=== PATIENT | female | born 1950 | race Caucasian/White ===

== ENCOUNTER → 2020-05-07 12:09 | Outpatient (CLI) | payer MEDICARE, SELFPAY ==
--- NOTE | ~2020-05-07 | DEXA_ITS ---
Bone Density Report Name: Teena Tinoco Age: 69 Sex: Female Ethnicity: White Date of : 1950 Indication: postmenopausal; screening for osteoporosis; parental hip fracture; height loss; prior fracture; hysterectomy; Referring Provider: KADE, TAMMY Watt Study: Bone densitometry was performed. Exam Date: May 07, 2020 Accession number: [id number] Bone Density: Region BMD T-score Z-score Classification AP Spine (L1-L4) 0.740 -2.8 -0.7 Osteoporosis Femoral Neck (Left) 0.327 -4.7 -2.9 Osteoporosis Total Hip (Left) 0.460 -4.0 -2.4 Osteoporosis Femoral Neck (Right) 0.376 -4.3 -2.4 Osteoporosis Total Hip (Right) 0.460 -3.9 -2.4 Osteoporosis Total Hip Mean 0.460 -4.0 -2.4 Osteoporosis World Health Organization criteria for BMD impression classify patients as: Normal (T-score at or above -1.0), Osteopenia (T-score between -1.0 and -2.5), or Osteoporosis (T-score at or below -2.5). 10-year Fracture Risk: FRAX not reported because: Some T-score for Spine Total or Hip Total or Femoral Neck at or below -2.5 Prior hip or vertebral fracture Clinical Information Provided by Patient: Have had a previous hip or vertebral fracture Has had a low trauma fracture Parent has had a hip fracture Has the following medical conditions: Hysterectomy Patient maximum height was 61.0 Menopause Age: 30 No regular weight bearing exercise Does not regularly consume dairy products Drinks caffeinated beverages Onset of menses at age 13 Number of children 1 Impression: The patient has established osteoporosis, based on the Left Femoral Neck T-score and the existence of a prior fracture. The patient has risk factors, including: parental hip fracture, previous fracture. Discussion: HIGH RISK OF FRACTURE. BONE DENSITY IS UNDESIRABLY LOW AT ONE OR MORE SKELETAL SITES, CONSISTENT WITH POSTMENOPAUSAL OSTEOPOROSIS. This patient's lowest T-score, in a patient who has previously fractured, meets the World Health Organization's (WHO) criteria for severe osteoporosis. In untreated patients, the risk of osteoporotic fracture increases approximately two-fold for each 1.0 SD decrease in T-score. Low bone density is not the only risk factor for fracture; also consider factors such as patient's age, frailty or poor health, risk of falling, risk of injury, previous osteoporotic fracture, family history of osteoporosis, cigarette smoking, low body weight, etc. Not everyone with low bone mineral density has osteoporosis; osteomalacia and other metabolic bone disorders should also be considered. Patients who have osteoporosis should be evaluated for specific diseases and conditions (secondary causes) that may cause or contribute to bone loss. The [place] [employer]ocrinologists (AACE) and National Osteoporosis Foundation (NOF) recommend
--- NOTE | ~2020-05-07 | MM_ITS ---
EXAMINATION: MM screening jenny BI w karishma HISTORY: Screening mammogram TECHNIQUE: Craniocaudal and mediolateral oblique 3-D tomosynthesis images were obtained and synthetic 2-D images were generated. CAD analysis was submitted and interpreted. COMPARISON: 03/20/2018 bilateral diagnostic digital mammogram 11/17/2014 bilateral digital screening mammogram BREAST PARENCHYMAL COMPOSITION: The breasts are heterogeneously dense, which may obscure small masses . FINDINGS: There are numerous scattered bilateral benign calcifications. There is no evidence of suspi cious mass, calcification, or architectural distortion to suggest malignancy in either breast. There has been no suspicious interval change. IMPRESSION: 1. No mammographic evidence of malignancy. 2. Recommend routine screening mammography in one year. BI-RADS Category 2: Benign Reviewed, dictated and finalized at location A. IVER/LABORER
== END ==
PROVIDERS: Visit Provider Internal Medicine
DX: Z12.31 Encounter for screening mammogram for malignant neoplasm of breast (principal); Z78.0 Asymptomatic menopausal state; M81.0 Age-related osteoporosis without current pathological fracture
CPT/HCPCS: 77063; 77067; 77080

== ENCOUNTER 2020-05-25 12:24 | Inpatient (IN) | payer MEDICARE, SELFPAY ==
[2020-05-25] VITALS (7 sets, daily range): BP systolic 103–138; BP diastolic 66–79; PULSE 72–92; RESP 16–18; TEMP 36.5–36.7; O2SAT 96–100; BMI 28.2
--- NOTE | ~2020-05-25 | XR_ITS ---
EXAMINATION: XR shoulder RT min 2V DATE: 05/25/2020 15:20 INDICATION: Right shoulder pain. Fall. TECHNIQUE: 2 views of right shoulder were obtained. COMPARISON: None. FINDINGS: There is a comminuted fracture of proximal humerus with involvement of the surgical neck an d greater tuberosity. The lesser tuberosity is not well evaluated. The main distal fracture fragment demonstrates impaction, 2.1 cm anterior displacement, 31 degrees posterior angulation, 5 mm medial di splacement, and 20 degrees lateral angulation. There is mild glenohumeral joint osteoarthritis and mi ld acromioclavicular joint osteoarthritis. IMPRESSION: 1. Comminuted two-part fracture of proximal right humerus. Reviewed, dictated and finalized at location A.
--- NOTE | ~2020-05-25 | CT_ITS ---
EXAMINATION: CT shoulder RT wo con DATE: 05/25/2020 18:39 INDICATION: Right shoulder injury. TECHNIQUE: Computed tomography (CT) of the right shoulder was performed without intravenous contrast. Automated exposure control and iterative reconstruction technique were employed. The dose-length pro duct was 415.39 mGy-cm. COMPARISON: Right shoulder radiographs 05/25/2020 FINDINGS: There is a comminuted fracture of proximal right humerus including displaced fracture compo nents at the greater and lesser tuberosities and surgical neck. The main distal fracture fragment dem onstrates impaction, 16 mm anterior displacement, and 24 degrees posterior angulation. There is mild osteoarthritis of glenohumeral and acromio clavicular joints. IMPRESSION: 1. Comminuted, four-part fracture of proximal right humerus. Reviewed, dictated and finalized at location A.
--- NOTE | ~2020-05-25 | XR_ITS ---
EXAMINATION: XR forearm RT 2V DATE: 05/25/2020 15:20 INDICATION: Right forearm pain. TECHNIQUE: 2 views of right forearm were obtained. COMPARISON: None. FINDINGS: Bone alignment is normal. No fracture. There is mild elbow joint osteoarthritis. There is m ild osteoarthritis of first and third metacarpophalangeal joints. IMPRESSION: 1. No fracture. Reviewed, dictated and finalized at location A. IMPRESSION: 1. No fracture.
--- NOTE | ~2020-05-25 | XR_ITS ---
EXAMINATION: XR humerus RT DATE: 05/25/2020 15:20 INDICATION: Right shoulder pain. Fall. TECHNIQUE: 2 views of right humerus were obtained. COMPARISON: None. FINDINGS: There is a comminuted fracture of proximal right humerus with nondisplaced fracture compone nt at the greater tuberosity. There is a fracture component at the surgical neck where the distal fra cture fragment demonstrates impaction, medial displacement, lateral angulation, anterior displacement , and posterior angulation. There is mild osteoarthritis of glenohumeral and acromioclavicular joints . There are old healed right rib fractures. IMPRESSION: 1. Comminuted two-part fracture of proximal right humerus. Reviewed, dictated and finalized at location A.
--- NOTE | 2020-05-25 14:45 | PC.NURSE ---
provider at bedside. Family updated on pt room.
[2020-05-25] MEDS: HYDROcodone/acetaminophen (*CRX) 5-325 MG TABLET 1 TAB PO (16:02)
--- NOTE | 2020-05-25 16:20 | ED.GENADULT ---
HPI - General Adult General Chief complaint: Extremity Injury, Upper Stated complaint: right arm pain Time Seen by Provider: 05/25/20 14:53 Source: patient Mode of arrival: EMS Limitations: no limitations History of Present Illness HPI narrative: Patient presents to the emergency department for evaluation of right arm pain due to losing her footing while ambulating with her walker. Patient is coming from [facility]. Patient states that she has broken the shoulder in the past but she is not sure who the surgeon was to perform the surgery or exactly when it was. Patient denies any head impact or loss of consciousness. She denies any headache, chest pain, shortness of breath or any other areas of pain or discomfort. Related Data Home Medications Medication Instructions Recorded Confirmed bupropion HCl mg PO 05/25/20 donepezil mg 05/25/20 escitalopram oxalate mg 05/25/20 exenatide microspheres [Bydureon mg SUBCUT 05/25/20 BCise] furosemide 05/25/20 gabapentin 05/25/20 glimepiride mg 05/25/20 levothyroxine 05/25/20 metformin mg PO 05/25/20 nadolol 05/25/20 potassium chloride [Klor-Con M20] meq PO 05/25/20 Allergies Allergy/AdvReac Type Severity Reaction Status Date / Time azithromycin Allergy Unknown Unknown Verified 05/25/20 20:54 lisinopril Allergy Unknown Unknown Verified 05/25/20 20:54 niacin Allergy Unknown Unknown Verified 05/25/20 20:54 Review of Systems Review of Systems: Narrative: CONSTITUTIONAL: Denies fever, chills, or sweats. EYES: Denies visual changes, redness, or discharge. ENT: Denies rhinorrhea, congestion, sore throat, or otalgia. CARDIOVASCULAR: Denies chest pain, palpitations, or edema. RESPIRATORY: Denies cough or dyspnea. GASTROINTESTINAL: Denies abdominal pain, nausea, vomiting, or diarrhea. GENITOURINARY: Denies dysuria or hematuria. SKIN: Denies rash or itching. MUSCULOSKELETAL: Reports right shoulder pain denies back pain, joint pain, or myalgia. NEUROLOGIC: Denies headache, numbness, dizziness, or weakness. PSYCHIATRIC: Denies anxiety or depression. [facility] Family History Family History (Updated 05/25/20 @ 20:53 by Concha Kenyon RN) Mother Acute myocardial infarction Diabetes mellitus Hypertension Social History Social History Smoking packs per day: 1 Smoking cigarettes per day: 20.0 Years smoked: 20 Smoking pack-years: 20.00 Smoking status: Former smoker Tobacco type: cigarettes Second hand tobacco smoke exposure: Yes Alcohol intake: never Substance use: never Gender identity (if verbalized by the patient): Female Spiritual care concerns: No Exam Narrative: Exam Narrative: GENERAL: Well-appearing, well-nourished, and in no acute distress. HEAD: Normocephalic, atraumatic. No hematomas or lacerations. EYES: PERRLA and EOMI. ENT: Nares clear, no rhinorrhea or epistaxis. Mucous membranes moist. Oropharynx without tonsillar hypertrophy exudate or other lesions. Bilateral TMs pearly oscar nonbulging. No hemotympanum. NECK: Supple. No adenopathy or masses. No pain with range of motion. CHEST: Clear to auscultation. No respiratory distress. No wheezes rales or rhonchi HEART: Regular rate and rhythm. EXTREMITIES: Pain with palpation of the proximal humerus. Patient reports pain to his elbow and forearm as well that is more mild. SKIN: Warm, dry, no rash. NEURO: No focal deficits. Alert and oriented to person, place and situation. PSYCH: Normal mood and affect. Course Vital Signs Vital signs: Vital Signs Temperature 98.0 F 05/25/20 14:19 Pulse Rate 76 05/25/20 14:19 Respiratory Rate 16 05/25/20 14:19 Blood Pressure 103/66 05/25/20 14:19 Pulse Oximetry 97 05/25/20 14:19 Temperature 98.0 F 05/25/20 14:19 Pulse Rate 80 05/25/20 20:21 Respiratory Rate 18 05/25/20 20:21 Blood Pressure 121/78 05/25/20 20:21 Pulse Oximetry 97 05/25/20 20:21 Medical Decision Making KOBE Ellis
--- NOTE | 2020-05-25 16:23 | PC.NURSE ---
Swathi updated on pt status, state they will attempt to fax pt medication list.
--- NOTE | 2020-05-25 18:00 | PC.NURSE ---
Pt and family have decided that they would like to to stay in hospital at this time. Family states she cannot come home with them and pt states she does not feel safe to return to the facility where she is living.
--- NOTE | 2020-05-25 19:09 | PC.NURSE ---
Report to VENKAT Bartholomew and Martin, they have assumed pt care at this time.
--- NOTE | 2020-05-25 20:35 | ADMGEN ---
This patient, Teena Tinoco, was admitted to Medical Room 340-01. Patient/family oriented to hospital policies and general routines including ID bracelet, bed and alarms, visiting hours, pain management, procedures, bathroom and other care routines, personal items, smoking policy, room service/diet, and visiting hours. Information on how to activate the Rapid Response Team has been discussed. Patient/Family are encouraged to report perceived risks to care and to ask questions if they do not understand what they are told or what they should do.
[2020-05-25 21:44] LABS: Glucose Point of Care 129 (65-105)
--- NOTE | 2020-05-26 00:48 | PM.IMHP ---
H&P: HPI History of Present Illness Date/Time: 05/25/20 who is from [facility]. The patient came to the emergency room today for evaluation of right arm pain. Patient lost her footing while she was ambulating with her walker. The patient stated she had surgery on 1 of her shoulders in the past. She said she did not hit her head or lose consciousness. She did feel any dizziness chest pain or palpitations. 4 part fracture proximal right humerus. Forearm x-ray was read as no fracture. Humerus x-ray come unit 2 part fracture proximal right humerus. It was noted that Dr. hussein had been consulted and suggested that the patient be placed in a shoulder immobilizer. No order had been placed. The patient lives in visitor services information assistant living and had some issues cleaning herself a because she has right handed. Is noted that the patient needs to go to rehab as she will not be able to take care of herself. Not sure if the patient will require surgical repair at this time. The patient was given [place] For discomfort and she is not having a great amount of pain at this. This is minimal. Chief Complaint: Right arm pain Review of Systems Review of Systems: All systems reviewed & are unremarkable except as noted in HPI and below Constitutional: Constitutional: Reports as per HPI and Reports no additional constitutional complaints Eyes: Eyes: Reports as per HPI and Reports no additional eye complaints ENT: Reports system reviewed and no additional complaints, except as documented and Reports Normal hearing present Cardiovascular: Cardiovascular: Reports no additional cardiovascular complaints Respiratory: Respiratory: Reports no additional respiratory complaints and Reports no additional respiratory complaints Gastrointestinal: Gastrointestinal: Reports as per HPI and Reports no additional gastrointestinal complaints Musculoskeletal: Musculoskeletal: Reports no additional musculoskeletal complaints Integumentary/Breasts: Skin/Breast: Reports system reviewed and no additional complaints, except as docu and Reports as per HPI Neurologic: Reports system reviewed and no additional complaints, except as documented, Reports as per HPI and Reports Normal hearing present Psychiatric: Psychiatric: Reports no additional psychiatric complaints and Reports as per HPI Endocrine: Endocrine: Reports no additional endocrine complaints Hematologic/Lymphatic: Hematologic/Lymphatic: Reports no additional hematologic/lymphatic complaints Allergic/Immunologic: Allergic/Immunologic: Reports no additional allergic/immunologic complaints [facility] Past Medical History Medical History (Updated 05/26/20 @ 01:13 by Sol Sheehan NP) Atrial fibrillation Congestive heart failure Dementia Depression with anxiety DM2 (diabetes mellitus, type 2) H/O gastroesophageal reflux (GERD) Hepatitis Herpes History of stroke Hyperlipidemia Hypertension Hypothyroidism Iron deficiency anemia Neuropathy Retinopathy Surgical History Surgical History (Updated 05/26/20 @ 01:01 by Sol Sheehan NP) H/O bladder repair surgery H/O heart artery stent Multiple times H/O two vessel coronary artery bypass graft H/O: hysterectomy Hx of cataract surgery Bilateral S/P appendectomy S/P LASIK surgery of both eyes Family History Family History Mother Acute myocardial infarction Diabetes mellitus Hypertension Cerebrovascular accident Heart disease Sibling Heart disease Acute myocardial infarction Diabetes mellitus Social History Social History (Updated 05/26/20 @ 01:05 by Sol Sheehan NP) Social History: The patient resides at [facility] she is listed as a full code. She tells me that she is now for about 11 years. She has a son listed Edison and a daughter Bhavna. The patient was listed as a homemaker. Patient was a former smoker. No
--- NOTE | 2020-05-26 01:10 | ECG_ITS ---
Measurements Intervals [place] Rate: 84 P: 34 MT: 160 QRS: -3 QRSD: 114 T: 36 QT: 388 QTc: 461 Interpretive Statements SINUS RHYTHM INCOMPLETE RIGHT BUNDLE BRANCH BLOCK NONSPECIFIC ST & T-WAVE ABNORMALITY- DIFFUSE LEADS BORDERLINE ECG Electronically Signed On 05-26-2020 8:36:12 CDT by Jarrett Benitez D.O.
[2020-05-26] MEDS: HYDROcodone/acetaminophen (*CRX) 5-325 MG TABLET 1 TAB PO ×2 (01:27→16:21)
[2020-05-26 05:03] VITALS: BP 134/81; PULSE 72; RESP 18; TEMP 36.6; O2SAT 94
[2020-05-26] MEDS: LEVOTHYROXINE SODIUM 88 MCG TABLET PO (05:30)
[2020-05-26 06:03] LABS: Hematocrit 37.1 % (37.0-47.0); Hemoglobin 12.8 g/dL (12.0-15.0); Mean Corpuscular HGB Conc 34.5 g/dl (32-36); Mean Corpuscular Hemoglobin 34.5 pg (26-34); Mean Platelet Volume 9.6 fl (7.4-10.4); Platelet Count Result 153 k/mm3 (150-375); Red Blood Count 3.71 M/mm3 (4.2-5.4); Red Cell Distribution Width 13.2 % (11.5-14.5); White Blood Count 7.3 K/mm3 (4.5-10.0)
[2020-05-26 06:10] LABS: Hemoglobin A1C 7.4 % (<5.7)
[2020-05-26 06:16] LABS: Anion Gap 6 mmol/L (8-16); Blood Urea Nitrogen 18 mg/dL (7-17); Calcium 8.9 mg/dL (8.4-10.2); Carbon Dioxide 29 mmol/L (22-30); Chloride 103 mmol/L (98-107); Estimated CRCL calculation 57 ml/min; Estimated Glomerular Filt Rate > 60; Glucose 172 mg/dL (65-105); Potassium 3.9 mmol/L (3.4-5.0); Sodium 138 mmol/L (137-145)
--- NOTE | 2020-05-26 08:26 | PC.NURSE ---
Pt refusing medication this morning. States she doesn't see the point . I explained to the pt the importance of medication. Pt still refuses.
[2020-05-26 08:30] LABS: Glucose Point of Care 201 (65-105)
[2020-05-26 11:35] LABS: Glucose Point of Care 188 (65-105)
[2020-05-26 14:00] VITALS: BP 122/67; PULSE 76; RESP 18; TEMP 36.7; O2SAT 96
--- NOTE | 2020-05-26 16:14 | PM.CNOR ---
Assessment and Plan Additional Plan Patient is a 69-year-old female who was admitted through the emergency room last evening with a comminuted mildly displaced 4 part right proximal humerus fracture. The x-rays and CT scan suggests that the articular segment is reasonably approximated to the glenoid. There is relative impaction and comminution of the metaphyseal segment and some shortening but the shaft remains in continuity with the anterior aspect of the head tuberosity mass. Her past medical history is significant for congestive heart failure atrial fibrillation history of stroke diabetes ex-smoker with dementia and she lives in assisted living. She takes a baby aspirin. On examination today she was an excellent spirits very cheerful and energetic and pleasant and interactive very well. She has intact motor function sensation in the right hand and there is only mild swelling about the right shoulder at this time. She denies any other injury. Review of her CT scan shows on the director of career services view that she is had a proximal humerus fracture of the left shoulder at some time in the past. Impression patient has mildly displaced moderately impacted and comminuted 4 part right proximal humerus fracture. The articular surface aligns reasonably well with the glenoid. I have discussed with her that surgery can be considered which would be a reverse total shoulder arthroplasty fairly large operation and our other option is to treat this nonsurgically with the option of considering reverse shoulder arthroplasty at a later date if her results her felt to be unsatisfactory. I have recommended the 2nd approach to her. She would be at higher risk for medical complications given her past history and if she has a shoulder that does not hurt but only has mild decrease in range of motion that is tolerable and I think that would be the best approach. Again if this fails to heal or she develops significant secondary arthritic symptoms reverse shoulder arthroplasty can be performed any time in the future. She is agreeable with this approach. History of Present Illness HPI Consult date: 05/26/20 Chief complaint: Right humerus fracture [facility] Past Medical History Medical History (Updated 05/26/20 @ 01:13 by Sol Sheehan NP) Atrial fibrillation Congestive heart failure Dementia Depression with anxiety DM2 (diabetes mellitus, type 2) H/O gastroesophageal reflux (GERD) Hepatitis Herpes History of stroke Hyperlipidemia Hypertension Hypothyroidism Iron deficiency anemia Neuropathy Retinopathy Surgical History Surgical History (Updated 05/26/20 @ 01:01 by Sol Sheehan NP) H/O bladder repair surgery H/O heart artery stent Multiple times H/O two vessel coronary artery bypass graft H/O: hysterectomy Hx of cataract surgery Bilateral S/P appendectomy S/P LASIK surgery of both eyes Family History Family History (Updated 05/26/20 @ 01:06 by Sol Sheehan NP) Mother Acute myocardial infarction Diabetes mellitus Hypertension Cerebrovascular accident Heart disease Sibling Heart disease Acute myocardial infarction Diabetes mellitus Social History Social History (Updated 05/26/20 @ 01:05 by Sol Sheehan NP) Social History: The patient resides at [facility] she is listed as a full code. She tells me that she is now for about 11 years. She has a son listed Edison and a daughter Bhavna. The patient was listed as a homemaker. Patient was a former smoker. No alcohol marijuana illicit drugs. Smoking packs per day: 1 Smoking cigarettes per day: 20.0 Years smoked: 20 Smoking pack-years: 20.00 Smoking status: Former smoker Tobacco type: cigarettes Second hand tobacco smoke exposure: Yes Alcohol intake: never Substance use: never Gender identity (if verbalized by the patient): Female Spiritual care concerns: No Meds Home Medications and Allergies Home Medicatio
[2020-05-26] MEDS: GLIMEPIRIDE 2 MG TABLET PO (16:21)
[2020-05-26] MEDS: GABAPENTIN 100 MG CAPSULE PO (16:21)
[2020-05-26] MEDS: FERROUS SULFATE 324 MG TABLET PO (16:21)
--- NOTE | 2020-05-26 16:31 | PM.IMPN ---
Progress Note: A&P Assessment and Plan (1) Fall: Code(s): W19.XXXA - Unspecified fall, initial encounter Status: Acute Assessment and Plan: She had a mechanical fall on 05/25/2020 in which she lost her footing. She did not hit her head or lose consciousness. She did not have any precipitating symptoms including dizziness or chest pain. Appreciate PT/OT eval Fall precautions in place (2) Right humeral fracture: Code(s): S42.301A - Unspecified fracture of shaft of humerus, right arm, initial encounter for closed fracture Status: Acute Assessment and Plan: Occurred secondary to fall. Comminuted 2 part fracture proximal right humerus and shoulder CT showed 4 part fracture of proximal right humerus. Pain is 8/10. She has elected for conservative management. Orthopedic surgery has been consulted and input is appreciated. Weight-bearing status per orthopedic surgery Continue with sling Appreciate PT/OT eval. Analgesics available as needed for pain (3) DM2 (diabetes mellitus, type 2): Code(s): E11.9 - Type 2 diabetes mellitus without complications Status: Chronic Assessment and Plan: A1c is 7.4. Blood sugars reviewed and are slightly elevated above target. Continue Accu-Cheks ACHS, sliding-scale insulin, hypoglycemic protocol Initiate Lantus at reduced dose Hold metformin (4) Atrial fibrillation: Code(s): I48.91 - Unspecified atrial fibrillation Status: Chronic Assessment and Plan: Rate is well controlled. EKG on 05/26 demonstrates normal sinus rhythm. She does not appear to be on systemic anticoagulation, likely due to her fall risk. Continue nadolol (5) Hypothyroidism: Code(s): E03.9 - Hypothyroidism, unspecified Status: Chronic Assessment and Plan: Continue levothyroxine Check TSH (6) Dementia: Code(s): F03.90 - Unspecified dementia without behavioral disturbance Status: Chronic Assessment and Plan: She is A&Ox2 Continue donepezil Subjective Date/time seen: 05/26/20 16:31 Interval history: Date of service: 05/26/2020 Teena Tinoco is a 69-year-old female with a history of dementia, atrial fibrillation, CHF, insulin-dependent type 2 diabetes mellitus, hypertension, hypothyroidism, iron deficiency anemia, and several other comorbidities who is seen in follow-up for right humerus fracture. She is doing well at this time. She reports her pain is 8/10, but overall she is very comfortable. She has been eating well. She denies nausea, vomiting, fever, chills. She reports she has not got up and walked today but denies feeling weak, dizzy, or lightheaded. She denies abdominal pain, cramping, or bloating. She denies shortness breath, cough, chest pain, or palpitations. Denies any urinary symptoms. Review of Systems Review of Systems: Narrative: 12 systems reviewed with pertinent positives and negatives as per HPI. All systems reviewed & are unremarkable except as noted in HPI and below Exam Narrative: Exam Narrative: Ms. Tinoco is a well-nourished, well-appearing 69-year-old female who is lying semi recumbent in bed. She appears comfortable and is in NARD. Neuro: awake, alert and oriented to self. She is aware she is in the hospital but cannot state name of hospital. Unable to state year, month, or president. Speech clear, no focal neuro deficits noted HEENMT: normocephalic, atraumatic, EOMI, sclerae anicteric, moist oral mucosa, tongue midline, nares patent Neck: supple, no lymphadenopathy Respiratory: clear to auscultation bilaterally, nonlabored breathing Cardio: regular rate, regular rhythm with S1-S2 Abdomen: nondistended, normoactive bowel sounds, soft, nontender to palpation, no rigidity or guarding Extremities: Right arm in sling. Poison Information Specialist strength equal bilaterally. Brisk capillary refill of upper extremities. Bilateral lower extremities without ed
[2020-05-26 16:43] LABS: Glucose Point of Care 144 (65-105)
[2020-05-26 17:02] VITALS: PULSE 83
[2020-05-26] MEDS: nadoloL 20 MG TABLET BY MOUTH (17:02)
[2020-05-26] MEDS: INSULIN GLARGINE (*BKC) 100 UNITS/ML 17 UNITS SUB-Q (20:47)
[2020-05-26] MEDS: ACETAMINOPHEN 325 MG TABLET 650 MG PO (20:49)
[2020-05-26 20:50] LABS: Glucose Point of Care 209 (65-105)
[2020-05-26 21:55] VITALS: BP 113/62; PULSE 78; RESP 16; TEMP 36.6; O2SAT 94
[2020-05-27 05:58] VITALS: BP 106/71; PULSE 71; RESP 16; TEMP 36.1; O2SAT 93
[2020-05-27] MEDS: LEVOTHYROXINE SODIUM 88 MCG TABLET PO (05:59)
[2020-05-27 06:46] LABS: Basophils Absolute Auto 0.1 K/mm3 (0.0-0.1); Basophils Percent Auto 1.3 % (0.2-1.2); Eosinophils Absolute Auto 0.2 K/mm3 (0-0.3); Eosinophils Percent Auto 3.3 % (0-4.4); Hematocrit 34.4 % (37.0-47.0); Hemoglobin 12.1 g/dL (12.0-15.0); Immature Granulocyte Absolute 0.04 K/mm3 (0.00-0.031); Immature Granulocyte Percent A 0.6 % (0-0.5); Lymphocytes Absolute Auto 1.32 K/mm3 (0.9-3.2); Lymphocytes Percent Auto 19.2 % (18.3-44.2); Mean Corpuscular HGB Conc 35.2 g/dl (32-36); Mean Corpuscular Hemoglobin 35.3 pg (26-34); Mean Corpuscular Volume 100.3 fl (80-100); Mean Platelet Volume 9.8 fl (7.4-10.4); Monocytes Absolute Auto 1.1 K/mm3 (0.1-0.6); Monocytes Percent Auto 15.7 % (2.6-8.5); Neutrophils Absolute Auto 4.1 K/mm3 (1.3-6.7); Neutrophils Percent Auto 59.9 % (45.5-73.1); Platelet Count Result 122 k/mm3 (150-375); Red Blood Count 3.43 M/mm3 (4.2-5.4); Red Cell Distribution Width 13.3 % (11.5-14.5); White Blood Count 6.9 K/mm3 (4.5-10.0)
[2020-05-27 07:02] LABS: Magnesium 1.8 mg/dL (1.6-2.3)
[2020-05-27 07:29] LABS: Glucose Point of Care 172 (65-105)
[2020-05-27] MEDS: FERROUS SULFATE 324 MG TABLET PO ×2 (08:16→16:51)
[2020-05-27 08:17] VITALS: PULSE 71
[2020-05-27] MEDS: DONEPEZIL HCL 10 MG TABLET PO (08:17)
[2020-05-27] MEDS: GLIMEPIRIDE 2 MG TABLET PO ×2 (08:17→16:51)
[2020-05-27] MEDS: buPROPion HCL XL (24 HR) 150 MG TABCR PO (08:17)
[2020-05-27] MEDS: ESCITALOPRAM OXALATE 10 MG TABLET 20 MG PO (08:17)
[2020-05-27] MEDS: nadoloL 20 MG TABLET 40 MG BY MOUTH (08:17)
[2020-05-27] MEDS: SENNOSIDES 8.6 MG TABLET PO (08:17)
[2020-05-27] MEDS: GABAPENTIN 100 MG CAPSULE PO ×2 (08:18→16:51)
[2020-05-27] MEDS: FUROSEMIDE 40 MG TABLET PO (08:18)
[2020-05-27] MEDS: ASPIRIN 81 MG ENTERIC TABLET PO (08:19)
[2020-05-27] MEDS: POTASSIUM CHLORIDE 20 MEQ TABLET.ER PO (08:19)
[2020-05-27 13:05] LABS: Glucose Point of Care 299 (65-105)
[2020-05-27] MEDS: INSULIN ASPART (*BKC) 100 UNITS/ML SUB-Q ×2 (13:06→16:52)
[2020-05-27 14:44] VITALS: BP 97/67; PULSE 85; RESP 16; TEMP 36.4; O2SAT 93
--- NOTE | 2020-05-27 14:46 | PM.IMPN ---
Progress Note: A&P Assessment and Plan (1) Fall: Code(s): W19.XXXA - Unspecified fall, initial encounter Status: Acute Assessment and Plan: She had a mechanical fall on 05/25/2020 in which she lost her footing. She did not hit her head or lose consciousness. She did not have any precipitating symptoms including dizziness or chest pain. Appreciate PT/OT eval Fall precautions in place (2) Right humeral fracture: Code(s): S42.301A - Unspecified fracture of shaft of humerus, right arm, initial encounter for closed fracture Status: Acute Assessment and Plan: Occurred secondary to fall. <del>S</del>[facility] CT showed 4 part comminuted fracture of proximal right humerus. Pain is 8/10. She has elected for conservative management. Orthopedic surgery is following. Input is appreciated. Continue with sling Appreciate PT/OT eval. Analgesics available as needed for pain Check vitamin-D level (3) DM2 (diabetes mellitus, type 2): Code(s): E11.9 - Type 2 diabetes mellitus without complications Status: Chronic Assessment and Plan: A1c is 7.4. Blood sugars reviewed and are slightly elevated above target with a couple readings in the 200s. Continue Accu-Cheks ACHS, sliding-scale insulin, hypoglycemic protocol Continue Lantus at reduced dose. Her home Tresiba is non formulary. Hold metformin (4) Atrial fibrillation: Code(s): I48.91 - Unspecified atrial fibrillation Status: Chronic Assessment and Plan: Rate is well controlled. EKG on 05/26 demonstrates normal sinus rhythm. She does not appear to be on systemic anticoagulation, likely due to advanced age and fall risk. Continue nadolol (5) Hypothyroidism: Code(s): E03.9 - Hypothyroidism, unspecified Status: Chronic Assessment and Plan: TSH is within normal limits Continue levothyroxine (6) Dementia: Code(s): F03.90 - Unspecified dementia without behavioral disturbance Status: Chronic Assessment and Plan: She is A&Ox2 Continue donepezil Additional Plan Hopeful discharge to assisted living facility tomorrow pending results of COVID screening Subjective Date/time seen: 05/27/20 14:46 Interval history: Date of service: 05/27/2020 Teena Tinoco is a 69-year-old female with a history of dementia, atrial fibrillation, CHF, insulin-dependent type 2 diabetes mellitus, hypertension, hypothyroidism, iron deficiency anemia, and several other comorbidities who is seen in follow-up for right humerus fracture. She is feeling fairly well today. She is complaining of pain in her right arm, especially with movement. She rates her right arm pain is 8/10. Otherwise she has no complaints. She is a poor historian. She denies nausea, vomiting, fever, chills, shortness of breath, chest pain, palpitations. Denies abdominal pain, cramping or bloating. No dizziness or lightheadedness. She feels a bit weak. She denies any urinary symptoms. Appetite has been good. She has no additional concerns at this time. Review of Systems Review of Systems: All systems reviewed & are unremarkable except as noted in HPI and below Exam Narrative: Exam Narrative: Ms. Tinoco is a well-nourished, well-appearing 69-year-old female who is lying semi recumbent in bed. She appears comfortable and is in NARD. Neuro: awake, alert and oriented to self and location. Unable to state year, month, or president. Speech clear, no focal neuro deficits noted HEENMT: normocephalic, atraumatic, EOMI, sclerae anicteric, moist oral mucosa, tongue midline, nares patent Neck: supple, no lymphadenopathy Respiratory: clear to auscultation bilaterally, nonlabored breathing Cardio: regular rate, regular rhythm with S1-S2 Abdomen: nondistended, normoactive bowel sounds, soft, nontender to palpation, no rigidity or guarding Extremities: Right arm in sling. Freelance Photographer strength equal b
[2020-05-27 16:31] LABS: Glucose Point of Care 257 (65-105)
[2020-05-27 17:02] VITALS: PULSE 85
[2020-05-27 17:02] LABS: Vitamin D 25 Hydroxy 14.3 ng/mL
[2020-05-27] MEDS: nadoloL 20 MG TABLET BY MOUTH (17:02)
[2020-05-27 20:44] LABS: Glucose Point of Care 247 (65-105)
[2020-05-27] MEDS: INSULIN GLARGINE (*BKC) 100 UNITS/ML 20 UNITS SUB-Q (20:50)
[2020-05-27 22:00] VITALS: BP 94/56; PULSE 83; RESP 16; TEMP 36.8; O2SAT 95
[2020-05-28] VITALS: BP 102/67
[2020-05-28] MEDS: HYDROcodone/acetaminophen (*CRX) 5-325 MG TABLET 1 TAB PO (01:47)
[2020-05-28] MEDS: LEVOTHYROXINE SODIUM 88 MCG TABLET PO (05:39)
[2020-05-28] MEDS: ACETAMINOPHEN 325 MG TABLET 650 MG PO (05:41)
[2020-05-28 06:00] VITALS: BP 101/59; PULSE 88; RESP 16; TEMP 36.7; O2SAT 96
--- NOTE | 2020-05-28 07:23 | PM.PNORT ---
Progress Note: A&P Additional Plan HD 3 immoblizer adjusted, pt tends to move around and tries to remove, pt does complain of pain in shoulder , mild swelling in shoulder , plan to discharge, will need to wear immobilizer for at least 6 weeks Subjective Subjective Date/Time Seen: 05/28/20 07:23 Objective Data Vital Signs Vital Signs: Vital Signs - 24 hr 05/27/20 08:17 05/27/20 14:44 05/27/20 17:02 Temperature 36.4 C Pulse Rate 71 85 85 Respiratory Rate 16 Blood Pressure 97/67 L Pulse Oximetry 93 05/27/20 22:00 05/28/20 00:00 05/28/20 06:00 Temperature 36.8 C 36.7 C Pulse Rate 83 88 Respiratory Rate 16 16 Blood Pressure 94/56 L 102/67 101/59 L Pulse Oximetry 95 96 Intake/Output Intake/Output: Intake & Output 05/25/20 05/26/20 05/27/20 05/28/20 23:59 23:59 23:59 23:59 Intake Total 540 4961 300 Output Total 300 1150 750 Balance 240 3811 -450 Meds/Results Medications: Active Medications Generic Name Dose Route Start Last Admin Trade Name Freq PRN Reason Stop Dose Admin Acetaminophen 650 mg 05/26/20 16:39 05/28/20 05:41 Acetaminophen 325 Mg Tablet PO 650 mg Q4H PRN Administration Headache Hydrocodone Bitart/Acetaminophen 1 tab 05/25/20 18:49 05/28/20 01:47 Hydrocodone/Acetaminophen (*Crx) 5-325 Mg Tablet PO 1 tab Q6H PRN Administration Pain Rated 4-6 Aspirin 81 mg 05/27/20 09:00 05/27/20 08:19 Aspirin 81 Mg Enteric Tablet PO 81 mg DAILY KIM Administration Bupropion HCl 150 mg 05/26/20 09:00 05/27/20 08:17 Bupropion Hcl Xl (24 Hr) 150 Mg Tabcr PO 150 mg DAILY KIM Administration Cyanocobalamin 2,000 mcg 06/15/20 09:00 Cyanocobalamin Inj 1,000 Mcg/Ml Vial SUB-Q MONTHLY KIM Dextrose 12.5 gm 05/26/20 01:01 Dextrose 50% 25 Gm/50 Ml Syringe IV PUSH PRN PRN Hypoglycemia Protocol Donepezil HCl 10 mg 05/26/20 09:00 04/01/21 08:17 Donepezil Hcl 10 Mg Tablet PO 10 mg DAILY KIM Administration Escitalopram Oxalate 20 mg 05/26/20 09:00 05/27/20 08:17 Escitalopram Oxalate 10 Mg Tablet PO 20 mg DAILY KIM Administration Ferrous Sulfate 324 mg 05/26/20 08:00 05/27/20 16:51 Ferrous Sulfate 324 Mg Tablet PO 324 mg BIDWM KIM Administration Furosemide 40 mg 05/27/20 09:00 05/27/20 08:18 Furosemide 40 Mg Tablet PO 40 mg DAILY KIM Administration Gabapentin 100 mg 05/26/20 09:00 05/27/20 16:51 Gabapentin 100 Mg Capsule PO 100 mg BID KIM Administration Glimepiride 2 mg 05/26/20 08:00 05/27/20 16:51 Glimepiride 2 Mg Tablet PO 2 mg BIDWM KIM Administration Glucagon 1 mg 05/26/20 01:01 Glucagon For Inj 1 Mg Vial IM PRN PRN Hypoglycemia Protocol Glucose 15 gm 05/26/20 01:01 Glucose Oral Gel 15 Gm Of Glucse In 37.5 Gm Tube PO PRN PRN Hypoglycemia Protocol Dextrose 1,000 mls @ 100 mls/hr 05/26/20 01:01 Dextrose 5% 1,000 Ml IVPB PRN PRN Hypoglycemia Protocol Insulin Aspart 2 - 5 units 05/26/20 08:00 05/27/20 16:52 Insulin Aspart (*Bkc) 100 Units/Ml SUB-Q 3 units TIDWM KIM Administration Protocol Insulin Glargine 20 units 05/27/20 21:00 05/27/20 20:50 Insulin Glargine (*Bkc) 100 Units/Ml SUB-Q 20 units HS KIM Administration Levothyroxine Sodium 88 mcg 05/26/20 06:30 05/28/20 05:39 Levothyroxine Sodium 88 Mcg Tablet PO 88 mcg DAILY@0630 KIM Administration Nadolol 40 mg 05/26/20 09:00 05/27/20 08:17 Nadolol 20 Mg Tablet BY MOUTH 40 mg QAM KIM Administration Nadolol 20 mg 05/26/20 18:00 05/27/20 17:02 Nadolol 20 Mg Tablet BY MOUTH 20 mg QPM KIM Administration Non-Formulary Medication 2 mg 05/31/20 09:00 Exenatide Microspheres [Bydureon Bcise] SUB-Q 05/05/21 09:01 WEEKLY KIM Potassium Chloride 20 meq 05/27/20 09:00 05/27/20 08:19 Potassium Chloride 20 Meq Tablet.Er PO 20 meq DAILY KIM Administration Senna
[2020-05-28 07:27] LABS: Glucose Point of Care 192 (65-105)
[2020-05-28 07:50] LABS: Glucose Point of Care 210 (65-105)
[2020-05-28] MEDS: GABAPENTIN 100 MG CAPSULE PO ×2 (08:25→17:47)
[2020-05-28] MEDS: ASPIRIN 81 MG ENTERIC TABLET PO (08:25)
[2020-05-28] MEDS: FERROUS SULFATE 324 MG TABLET PO ×2 (08:25→17:46)
[2020-05-28] MEDS: GLIMEPIRIDE 2 MG TABLET PO ×2 (08:25→17:47)
[2020-05-28] MEDS: POTASSIUM CHLORIDE 20 MEQ TABLET.ER PO (08:25)
[2020-05-28] MEDS: buPROPion HCL XL (24 HR) 150 MG TABCR PO (08:25)
[2020-05-28 08:26] VITALS: PULSE 68
[2020-05-28] MEDS: nadoloL 20 MG TABLET 40 MG BY MOUTH (08:26)
[2020-05-28] MEDS: DONEPEZIL HCL 10 MG TABLET PO (08:26)
[2020-05-28] MEDS: ESCITALOPRAM OXALATE 10 MG TABLET 20 MG PO (08:26)
[2020-05-28] MEDS: FUROSEMIDE 40 MG TABLET PO (08:26)
[2020-05-28] MEDS: SENNOSIDES 8.6 MG TABLET PO (08:26)
[2020-05-28] MEDS: CHOLECALCIFEROL 1,000 UNITS TABLET 1000 UNITS PO (09:06)
[2020-05-28 12:11] LABS: Glucose Point of Care 255 (65-105)
[2020-05-28] MEDS: INSULIN ASPART (*BKC) 100 UNITS/ML SUB-Q (12:21)
[2020-05-28 14:00] VITALS: BP 90/48; PULSE 72; RESP 16; TEMP 36.7; O2SAT 93
--- NOTE | 2020-05-28 15:53 | PCPTNOTE ---
The patient treatment was not able to be completed today. Will plan to continue treatment per plan of care.
--- NOTE | 2020-05-28 16:04 | PM.IMPN ---
Progress Note: A&P Assessment and Plan (1) Fall: Code(s): W19.XXXA - Unspecified fall, initial encounter Status: Acute Assessment and Plan: She had a mechanical fall on 05/25/2020 in which she lost her footing. She did not hit her head or lose consciousness. She did not have any precipitating symptoms including dizziness or chest pain. Appreciate PT/OT eval Fall precautions in place (2) Right humeral fracture: Code(s): S42.301A - Unspecified fracture of shaft of humerus, right arm, initial encounter for closed fracture Status: Acute Assessment and Plan: Occurred secondary to fall. <del>S</del>[facility] CT showed 4 part comminuted fracture of proximal right humerus. She has elected for conservative management. Pain is well controlled at this time. Vitamin-D levels insufficient. Orthopedic surgery is following. Input is appreciated. Continue with sling Appreciate PT/OT eval. Analgesics available as needed for pain Begin vitamin-D supplementation 1000 units daily. She will benefit from DEXA scan as an outpatient. (3) DM2 (diabetes mellitus, type 2): Code(s): E11.9 - Type 2 diabetes mellitus without complications Status: Chronic Assessment and Plan: A1c is 7.4. Blood sugars reviewed and are slightly elevated above target. Continue Accu-Cheks ACHS, hypoglycemic protocol. Change to high-dose sliding scale insulin Continue Lantus at reduced dose. Her home Tresiba is non formulary. Resume home metformin (4) Atrial fibrillation: Code(s): I48.91 - Unspecified atrial fibrillation Status: Chronic Assessment and Plan: Rate is well controlled. EKG on 05/26 demonstrates normal sinus rhythm. She does not appear to be on systemic anticoagulation, likely due to advanced age and fall risk. Continue nadolol (5) Hypothyroidism: Code(s): E03.9 - Hypothyroidism, unspecified Status: Chronic Assessment and Plan: TSH is within normal limits Continue levothyroxine (6) Dementia: Code(s): F03.90 - Unspecified dementia without behavioral disturbance Status: Chronic Assessment and Plan: She is A&Ox2 Continue donepezil (7) Hypotension: Code(s): I95.9 - Hypotension, unspecified Status: Acute Assessment and Plan: Blood pressure readings have been low today down to 90/48. Per her report, she is asymptomatic. Review of prior blood pressures demonstrates low-normal blood pressure readings. Monitor BP closely. Can consider addition of IV fluid bolus should blood pressures decline further. Check orthostatics. Continue nadolol which is needed for rate control for atrial fibrillation. Additional Plan Planning for discharge to SNF tomorrow pending insurance approval. Subjective Date/time seen: 05/28/20 16:04 Interval history: Date of service: 05/28/2020 Teena Tinoco is a 69-year-old female with a history of dementia, atrial fibrillation, CHF, insulin-dependent type 2 diabetes mellitus, hypertension, hypothyroidism, iron deficiency anemia, and several other comorbidities who is seen in follow-up for right humerus fracture. She is doing better today. Her shoulder pain has improved. She has been eating well. She feels a little tired. She denies abdominal pain, nausea, vomiting, fever, chills, shortness of breath, cough, chest pain, dizziness, lightheadedness. She has no additional concerns at this time. Review of Systems Review of Systems: All systems reviewed & are unremarkable except as noted in HPI and below Exam Narrative: Exam Narrative: Ms. Tinoco is a well-nourished, well-appearing 69-year-old female who is lying semi recumbent in bed. She appears comfortable and is in NARD. Neuro: awake, alert and oriented to self and location. Unable to state year, month, or president. Speech clear, no focal neuro deficits noted HEENMT: normocephalic, atrauma
[2020-05-28 16:57] LABS: Glucose Point of Care 164 (65-105)
[2020-05-28 17:46] VITALS: PULSE 72
[2020-05-28] MEDS: nadoloL 20 MG TABLET BY MOUTH (17:46)
[2020-05-28] MEDS: metFORMIN HCL XR 500 MG TAB.SR.24H PO (17:47)
[2020-05-28 19:23] LABS: SARS-CoV-2 RNA PCR Negative
[2020-05-28 21:38] VITALS: BP 106/67; PULSE 74; RESP 18; TEMP 36.1; O2SAT 94
[2020-05-28] MEDS: INSULIN GLARGINE (*BKC) 100 UNITS/ML 20 UNITS SUB-Q (21:43)
[2020-05-28 22:26] LABS: Glucose Point of Care 155 (65-105)
[2020-05-29] VITALS (7 sets, daily range): BP systolic 88–108; BP diastolic 42–60; PULSE 64–71; RESP 16–18; TEMP 35.9–36.6; O2SAT 91–98
[2020-05-29] MEDS: LEVOTHYROXINE SODIUM 88 MCG TABLET PO (07:03)
[2020-05-29 08:40] LABS: Glucose Point of Care 133 (65-105)
--- NOTE | 2020-05-29 10:27 | PM.DS ---
DS: Admitting Diagnosis Admitting Diagnosis Admitting Diagnosis: Right humeral fracture DS: Discharge Diagnosis Discharge Diagnosis (1) Fall: Code(s): W19.XXXA - Unspecified fall, initial encounter Status: Acute Assessment and Plan: She had a mechanical fall on 05/25/2020 in which she lost her footing. She did not hit her head or lose consciousness. She did not have any precipitating symptoms including dizziness or chest pain. She was seen by PT/OT and will continue therapy at SNF. (2) Right humeral fracture: Code(s): S42.301A - Unspecified fracture of shaft of humerus, right arm, initial encounter for closed fracture Status: Deleted Assessment and Plan: Occurred secondary to fall. <del>S</del>[facility] CT showed 4 part comminuted fracture of proximal right humerus. She was seen in consultation by Orthopedic surgery and elected for conservative management. Continue arm immobilizer. Pain remained well controlled. She will follow-up with Dr. Sim in 2 weeks. (3) Osteoporosis: Code(s): M81.0 - Age-related osteoporosis without current pathological fracture Status: Acute Assessment and Plan: She had a DEXA scan on 05/07/2020 that demonstrated osteoporosis. Specific medications for osteoporosis. Vitamin-D levels found to be insufficient and she was initiated on vitamin-D supplementation 1000 units daily. She will need to follow-up with primary provider care provider. (4) DM2 (diabetes mellitus, type 2): Code(s): E11.9 - Type 2 diabetes mellitus without complications Status: Chronic Assessment and Plan: A1c is 7.4. Blood sugars reviewed and were slightly elevated above target. Managed with sliding scale insulin and basal insulin during stay. Continue home regimen of metformin, exenatide, glimepiride, and Tresiba. (5) Atrial fibrillation: Code(s): I48.91 - Unspecified atrial fibrillation Status: Chronic Assessment and Plan: Rate remained controlled. EKG on 05/26 demonstrated normal sinus rhythm. She is not on systemic anticoagulation, likely due to advanced age and fall risk. Continue nadolol (6) Hypothyroidism: Code(s): E03.9 - Hypothyroidism, unspecified Status: Chronic Assessment and Plan: TSH is within normal limits. Continue levothyroxine (7) Dementia: Code(s): F03.90 - Unspecified dementia without behavioral disturbance Status: Chronic Assessment and Plan: She was A&Ox2, consistent with her baseline. Continue donepezil (8) Hypotension: Code(s): I95.9 - Hypotension, unspecified Status: Acute Assessment and Plan: She had a few low blood pressure readings. She remained asymptomatic. She was not orthostatic. She was well hydrated. Review of prior blood pressures demonstrates low-normal blood pressure readings. Encouraged close monitoring of BP at nursing facility and further evaluation by PCP. Nadolol was continued which is needed for rate control for atrial fibrillation. DS: Summary Hospital Course Reason for hospitalization: Right humerus fracture Hospital Course: Date of admission: 05/25/2020 Date of discharge: 05/29/2020 Teena Tinoco is a 69-year-old female with a history of dementia, atrial fibrillation, CHF, insulin-dependent type 2 diabetes mellitus, hypertension, hypothyroidism, iron deficiency anemia, and several other comorbidities to the emergency department on 05/25/2020 with complaints of right arm pain after a mechanical fall at [facility]. She did not hit her head or lose consciousness. Upon presentation to the emergency department, her vital signs were stable, shoulder and humerus x-ray showed comminuted 2 part fracture proximal right humerus, forearm x-ray negative for fracture, and shoulder CT showed comminuted 4 part fracture of proximal right humerus. She was admitted to the hospitalist [facility]
[2020-05-29] MEDS: GABAPENTIN 100 MG CAPSULE PO (10:37)
[2020-05-29] MEDS: metFORMIN HCL XR 500 MG TAB.SR.24H PO (10:37)
[2020-05-29] MEDS: FERROUS SULFATE 324 MG TABLET PO (10:37)
[2020-05-29] MEDS: FUROSEMIDE 40 MG TABLET PO (10:38)
[2020-05-29] MEDS: ESCITALOPRAM OXALATE 10 MG TABLET 20 MG PO (10:38)
[2020-05-29] MEDS: ASPIRIN 81 MG ENTERIC TABLET PO (10:39)
[2020-05-29] MEDS: POTASSIUM CHLORIDE 20 MEQ TABLET.ER PO (10:39)
[2020-05-29] MEDS: buPROPion HCL XL (24 HR) 150 MG TABCR PO (10:41)
[2020-05-29] MEDS: GLIMEPIRIDE 2 MG TABLET PO (10:41)
[2020-05-29] MEDS: CHOLECALCIFEROL 1,000 UNITS TABLET 1000 UNITS PO (10:41)
[2020-05-29] MEDS: SENNOSIDES 8.6 MG TABLET PO (10:44)
[2020-05-29] MEDS: DONEPEZIL HCL 10 MG TABLET PO (10:49)
[2020-05-29] MEDS: nadoloL 20 MG TABLET 40 MG BY MOUTH (10:49)
[2020-05-29] MEDS: HYDROcodone/acetaminophen (*CRX) 5-325 MG TABLET 1 TAB PO (11:00)
[2020-05-29 12:04] LABS: Glucose Point of Care 180 (65-105)
== END 2020-05-29 15:15 | DRG 563 ==
LOC: ANHED 15:15 → ANH3MED 19:30
PROVIDERS: Nurse Practitioner; Physician Assistant; Admitting Provider Internal Medicine; Emergency Provider Emergency Medicine; PCP Internal Medicine; Visit Provider Internal Medicine
DX: S42.241A 4-part fracture of surgical neck of right humerus, initial encounter for closed fracture (principal); W19.XXXA Unspecified fall, initial encounter; E11.9 Type 2 diabetes mellitus without complications; I48.91 Unspecified atrial fibrillation; E03.9 Hypothyroidism, unspecified; F03.90 Unspecified dementia, unspecified severity, without behavioral disturbance, psychotic disturbance, mood disturbance, and anxiety; I50.9 Heart failure, unspecified; Z86.73 Personal history of transient ischemic attack (TIA), and cerebral infarction without residual deficits; E78.5 Hyperlipidemia, unspecified; D50.9 Iron deficiency anemia, unspecified; Z79.4 Long term (current) use of insulin; M81.0 Age-related osteoporosis without current pathological fracture; I95.9 Hypotension, unspecified; Z20.822 Contact with and (suspected) exposure to COVID-19
CPT/HCPCS: 36415; 73030; 73060; 73090; 73200; 80048; 82306; 82948; 83036; 83735; 84443; 85025; 85027; 93005; 97110; 97116; 97161; 97165; 97530; 97535; 99285; A4565; A9270; C9803; G0378; J1815; U0003; U0005

== ENCOUNTER 2021-02-24 13:19 | Emergency (ER) | payer MEDICARE, SELFPAY ==
--- NOTE | ~2021-02-24 | XR_ITS ---
EXAMINATION: XR hip LT 2V w AP pelvis INDICATION: Left hip pain TECHNIQUE: AP view the pelvis and two views of the left hip are obtained. COMPARISON: None available FINDINGS: Bone alignment is normal. There is no fracture. Mild osteoarthritis is noted in the hips. T here are phleboliths of the pelvis. Calcified atherosclerosis is noted. IMPRESSION: 1. No acute osseous abnormality. Reviewed, dictated and finalized at location F. [employer]
[2021-02-24 13:36] VITALS: BP 94/73; PULSE 66; RESP 16; TEMP 36.2; O2SAT 96
[2021-02-24 18:21] VITALS: BP 111/66; PULSE 70; RESP 14; O2SAT 95
[2021-02-24 19:00] VITALS: BP 112/63; PULSE 69; RESP 18; O2SAT 98
--- NOTE | 2021-02-24 19:00 | PC.NURSE ---
Assuming care of pt.
--- NOTE | 2021-02-24 20:14 | ED.FALL ---
HPI - Fall General Chief Complaint: Fall Stated Complaint: hip pain Time Seen by Provider: 02/24/21 19:00 History of Present Illness HPI Narrative: Patient is a 70-year-old female with history of expressive aphasia and dementia who presents ER with left hip pain. Patient lives in assisted living. Apparently she started complaining of left hip pain today and the facility became concerned because she was having some trouble ambulating. Patient cannot report any injury. No signs of trauma. Family reports that initially did not want to come however the facility insisted. Related Data Home Medications Medication Instructions Recorded Confirmed Bydureon BCise 2 mg SUBCUT WEEKLY 05/25/20 05/25/20 Tresiba FlexTouch U-200 22 unit SUBCUT HS 05/25/20 05/25/20 aspirin 81 mg PO DAILY 05/25/20 05/25/20 bupropion HCl 150 mg PO DAILY 05/25/20 05/25/20 cyanocobalamin (vitamin B-12) 2,000 mcg SUBCUT MONTHLY 05/25/20 05/25/20 donepezil 10 mg PO DAILY 05/25/20 05/25/20 escitalopram oxalate 20 mg PO DAILY 05/25/20 05/25/20 ferrous sulfate 325 mg PO BID 05/25/20 05/25/20 furosemide 40 mg PO DAILY 05/25/20 05/25/20 gabapentin 100 mg PO BID 05/25/20 05/25/20 glimepiride 2 mg PO BID 05/25/20 05/25/20 levothyroxine 88 mcg PO DAILY 05/25/20 05/25/20 metformin 500 mg PO BID 05/25/20 05/25/20 nadolol See Rx Instructions .ROUTE .COMPLEX 05/25/20 05/25/20 potassium chloride [Klor-Con M20] 20 meq PO DAILY 05/25/20 05/25/20 sennosides [Senna Lax] 8.6 mg PO DAILY 05/25/20 05/25/20 Allergies Allergy/AdvReac Type Severity Reaction Status Date / Time azithromycin Allergy Unknown Hives Verified 02/24/21 19:10 lisinopril Allergy Unknown Unknown Verified 02/24/21 19:10 niacin Allergy Unknown Diarrhea Verified 02/24/21 19:10 Review of Systems Review of Systems: ROS unobtainable: Yes unobtainable due to mental status PMFSH Past Medical History Medical History (Updated 02/24/21 @ 20:18 by Donta Ho MD) Atrial fibrillation Congestive heart failure Dementia Depression with anxiety DM2 (diabetes mellitus, type 2) H/O gastroesophageal reflux (GERD) Hepatitis Herpes History of stroke Hyperlipidemia Hypertension Hypothyroidism Iron deficiency anemia Neuropathy Osteoporosis Retinopathy Surgical History Surgical History (Updated 05/26/20 @ 01:01 by Sol Sheehan NP) H/O bladder repair surgery H/O heart artery stent Multiple times H/O two vessel coronary artery bypass graft H/O: hysterectomy Hx of cataract surgery Bilateral S/P appendectomy S/P LASIK surgery of both eyes Family History Family History (Updated 05/26/20 @ 01:06 by Sol Sheehan NP) Mother Acute myocardial infarction Diabetes mellitus Hypertension Cerebrovascular accident Heart disease Sibling Heart disease Acute myocardial infarction Diabetes mellitus Social History Social History (Updated 05/26/20 @ 01:05 by Sol Sheehan NP) Social History: The patient resides at [facility] she is listed as a full code. She tells me that she is now for about 11 years. She has a son listed Edison and a daughter Bhavna. The patient was listed as a homemaker. Patient was a former smoker. No alcohol marijuana illicit drugs. Smoking packs per day: 1 Smoking cigarettes per day: 20.0 Years smoked: 20 Smoking pack-years: 20.00 Smoking status: Former smoker Tobacco type: cigarettes Second hand tobacco smoke exposure: Yes Alcohol intake: never Substance use: never Gender identity (if verbalized by the patient): Female Spiritual care concerns: No Exam Narrative: GENERAL: Well-appearing, well-nourished, and in no acute distress. HEAD: Normocephalic, atraumatic. EYES: PERRL and EOMI. ENT: Mucous membranes moist. Scabbing to the right of the nasal bridge. CHEST: Clear to auscultation. No respiratory distress. HEART: Regular rate and rhythm. Normal peripheral pulses. ABDOMEN: Soft, nonte
[2021-02-24 20:37] VITALS: BP 114/65; PULSE 65; RESP 18; O2SAT 99
== END 2021-02-24 20:38 ==
PROVIDERS: Emergency Provider Emergency Medicine; PCP Internal Medicine
DX: M25.552 Pain in left hip (principal); F03.90 Unspecified dementia, unspecified severity, without behavioral disturbance, psychotic disturbance, mood disturbance, and anxiety; I48.91 Unspecified atrial fibrillation; I50.9 Heart failure, unspecified; I11.0 Hypertensive heart disease with heart failure; E78.5 Hyperlipidemia, unspecified; E03.9 Hypothyroidism, unspecified; E11.319 Type 2 diabetes mellitus with unspecified diabetic retinopathy without macular edema; E11.40 Type 2 diabetes mellitus with diabetic neuropathy, unspecified; D50.9 Iron deficiency anemia, unspecified; K21.9 Gastro-esophageal reflux disease without esophagitis; F41.8 Other specified anxiety disorders; M81.0 Age-related osteoporosis without current pathological fracture; Z95.5 Presence of coronary angioplasty implant and graft; Z95.1 Presence of aortocoronary bypass graft; Z98.42 Cataract extraction status, left eye; Z98.41 Cataract extraction status, right eye; Z87.891 Personal history of nicotine dependence; Z79.82 Long term (current) use of aspirin; Z79.84 Long term (current) use of oral hypoglycemic drugs
CPT/HCPCS: 73502; 99283

== ENCOUNTER 2021-04-23 17:43 | Emergency (ER) | payer MEDICARE, SELFPAY ==
--- NOTE | ~2021-04-23 | XR_ITS ---
EXAMINATION: XR shoulder RT min 2V INDICATION: Right shoulder pain TECHNIQUE: Three views of the right shoulder are submitted. COMPARISON: 05/25/2020 FINDINGS: There is a healed chronic fracture of the proximal right humerus. There is moderate osteoar thritis of the glenohumeral and acromioclavicular joints. There is an oblique fracture of the distal humerus, described on the humerus radiographs. Soft tissues are unremarkable. IMPRESSION: 1. Healed chronic fracture of the proximal right humerus. 2. Oblique fracture of the distal humerus described on humerus radiographs. Reviewed, dictated and finalized at location F. M REVIEW MEDICAL DIRECTOR
--- NOTE | ~2021-04-23 | XR_ITS ---
EXAMINATION: XR humerus RT INDICATION: Right arm pain, initial encounter TECHNIQUE: Two views of the right humerus are obtained. COMPARISON: None available FINDINGS: There is an acute, traumatic, closed, oblique fracture of the distal humerus. There are 45 degrees of varus angulation at the fracture site. A chronic healed fracture of the proximal right hum erus is noted. IMPRESSION: 1. Acute oblique fracture of the distal humerus with angulation. Reviewed, dictated and finalized at location F. ER HAND
[2021-04-23 17:48] VITALS: BP 114/51; PULSE 85; RESP 18; TEMP 37.3; O2SAT 94
[2021-04-23 17:49] VITALS: BP 114/74; PULSE 86; RESP 18; TEMP 37.3; O2SAT 94
--- NOTE | 2021-04-23 19:29 | PC.NURSE ---
Assumed care of pt at this time. Pt alert, supine on stretcher. Rates pain 10/10, requesting pain medication. Ice pack applied, EDP notified. Pt updated on POC.
[2021-04-23 19:31] VITALS: BP 106/62; PULSE 83; RESP 19; O2SAT 92
[2021-04-23] MEDS: fentaNYL CITRATE INJ (*CRX) 100 MCG/2 ML VIAL 12.5 MCG IV PUSH (19:54)
[2021-04-23 20:05] VITALS: O2SAT 87
[2021-04-23 20:09] VITALS: O2SAT 97
--- NOTE | 2021-04-23 20:10 | ED.FALL ---
HPI - Fall General Chief Complaint: Fall <Tete Mno APRN - Last Filed: 04/24/21 20:49> Stated Complaint: R arm pain <Tete Mon APRN - Last Filed: 04/24/21 20:49> Time Seen by Provider: 04/23/21 18:07 <Tete Mon APRN - Last Filed: 04/24/21 20:49> Source: patient <Tete Mon APRN - Last Filed: 04/24/21 20:49> Mode of arrival: EMS <Tete Mon APRN - Last Filed: 04/24/21 20:49> Limitations: no limitations <Tete Mon APRN - Last Filed: 04/24/21 20:49> History of Present Illness HPI Narrative: 70-year-old female presents today with complaints of right shoulder/arm pain that started after she had a fall today. Patient is from a assisted living. States she was trying to get up when she fell over to the right and hit her arm. CMS intact. <Tete Mon APRN - Last Filed: 04/24/21 20:49> Related Data Home Medications: Home Medications Medication Instructions Recorded Confirmed Bydureon BCise 2 mg SUBCUT WEEKLY 05/25/20 05/25/20 Tresiba FlexTouch U-200 22 unit SUBCUT HS 05/25/20 05/25/20 aspirin 81 mg PO DAILY 05/25/20 05/25/20 bupropion HCl 150 mg PO DAILY 05/25/20 05/25/20 cyanocobalamin (vitamin B-12) 2,000 mcg SUBCUT MONTHLY 05/25/20 05/25/20 donepezil 10 mg PO DAILY 05/25/20 05/25/20 escitalopram oxalate 20 mg PO DAILY 05/25/20 05/25/20 ferrous sulfate 325 mg PO BID 05/25/20 05/25/20 furosemide 40 mg PO DAILY 05/25/20 05/25/20 gabapentin 100 mg PO BID 05/25/20 05/25/20 glimepiride 2 mg PO BID 05/25/20 05/25/20 levothyroxine 88 mcg PO DAILY 05/25/20 05/25/20 metformin 500 mg PO BID 05/25/20 05/25/20 nadolol See Rx Instructions .ROUTE .COMPLEX 05/25/20 05/25/20 potassium chloride [Klor-Con M20] 20 meq PO DAILY 05/25/20 05/25/20 sennosides [Senna Lax] 8.6 mg PO DAILY 05/25/20 05/25/20 <Tete Mon APRN - Last Filed: 04/24/21 20:49> Allergies/Adverse Reactions: Allergies Allergy/AdvReac Type Severity Reaction Status Date / Time azithromycin Allergy Unknown Hives Verified 02/24/21 19:10 lisinopril Allergy Unknown Unknown Verified 02/24/21 19:10 niacin Allergy Unknown Diarrhea Verified 02/24/21 19:10 <Tete Mon [employer] - Last Filed: 04/24/21 20:49> Review of Systems Review of Systems: CONSTITUTIONAL: Denies fever, chills, or sweats. EYES: Denies visual changes, redness, or discharge. ENT: Denies rhinorrhea, congestion, sore throat, or otalgia. CARDIOVASCULAR: Denies chest pain, palpitations, or edema. RESPIRATORY: Denies cough or dyspnea. GASTROINTESTINAL: Denies abdominal pain, nausea, vomiting, or diarrhea. GENITOURINARY: Denies dysuria or hematuria. SKIN: Denies rash or itching. MUSCULOSKELETAL: Right arm pain. Denies back pain, joint pain, or myalgia. NEUROLOGIC: Denies headache, numbness, dizziness, or weakness. PSYCHIATRIC: Denies anxiety or depression. <Tete Mon APRN - Last Filed: 04/24/21 20:49> [facility] Past Medical History Medical History: Medical History (Updated 04/24/21 @ 00:00 by [facility]) Atrial fibrillation Congestive heart failure Dementia Depression with anxiety DM2 (diabetes mellitus, type 2) H/O gastroesophageal reflux (GERD) Hepatitis Herpes History of stroke Hyperlipidemia Hypertension Hypothyroidism Iron deficiency anemia Neuropathy Osteoporosis Retinopathy <Tete Mon APRN - Last Filed: 04/24/21 20:49> Surgical History Surgical History: Surgical History (Updated 05/26/20 @ 01:01 by Sol Sheehan NP) H/O bladder repair surgery H/O heart artery stent Multiple times H/O two vessel coronary artery bypass graft H/O: hysterectomy Hx of cataract surgery Bilateral S/P appendectomy S/P LASIK surgery of both eyes <Tete Mon, [employer]DER - Last Filed: 04/24/21 20:49> Family History Family History: Family History (Updated 05/26/20 @ 01:06 by Sol Sheehan NP) Mother Acute myocardial infarction Diabetes mellitus Hypertension Cerebrovascular
--- NOTE | 2021-04-23 21:25 | PC.NURSE ---
Called [facility] to request transport. ETA 2300 Called [facility] to request transport. Accepted and unit on the way.
[2021-04-23 21:29] VITALS: BP 106/62; PULSE 80; RESP 16; O2SAT 97
--- NOTE | 2021-04-23 21:51 | PC.NURSE ---
cancelled [facility] at [address] [facility] here at [address]
== END 2021-04-23 22:02 | disposition short-term general hospital (02) ==
PROVIDERS: Emergency Provider Nurse Practitioner Family; PCP Internal Medicine
DX: S42.491A Other displaced fracture of lower end of right humerus, initial encounter for closed fracture (principal); I48.91 Unspecified atrial fibrillation; I50.9 Heart failure, unspecified; F03.90 Unspecified dementia, unspecified severity, without behavioral disturbance, psychotic disturbance, mood disturbance, and anxiety; E78.5 Hyperlipidemia, unspecified; I11.0 Hypertensive heart disease with heart failure; E03.9 Hypothyroidism, unspecified; D50.9 Iron deficiency anemia, unspecified; F32.A Depression, unspecified; F41.9 Anxiety disorder, unspecified; E11.40 Type 2 diabetes mellitus with diabetic neuropathy, unspecified; E11.319 Type 2 diabetes mellitus with unspecified diabetic retinopathy without macular edema; M81.0 Age-related osteoporosis without current pathological fracture; K21.9 Gastro-esophageal reflux disease without esophagitis; Z86.73 Personal history of transient ischemic attack (TIA), and cerebral infarction without residual deficits; Z79.84 Long term (current) use of oral hypoglycemic drugs; Z79.82 Long term (current) use of aspirin; Z95.5 Presence of coronary angioplasty implant and graft; Z95.1 Presence of aortocoronary bypass graft; Z98.42 Cataract extraction status, left eye; Z98.41 Cataract extraction status, right eye; Z87.891 Personal history of nicotine dependence; W19.XXXA Unspecified fall, initial encounter
CPT/HCPCS: 73030; 73060; 96374; 99285; A4565; J3010

== ENCOUNTER 2021-05-27 11:20 | Inpatient (IN) | payer OTHER, MEDICARE, SELFPAY ==
[2021-05-27] VITALS (8 sets, daily range): BP systolic 110–148; BP diastolic 53–87; PULSE 72–109; RESP 18–22; TEMP 36.2–37.1; O2SAT 94–99
--- NOTE | ~2021-05-27 | CT_ITS ---
EXAMINATION: CT brain wo con INDICATION: Confusion COMPARISON: None TECHNIQUE: Standard unenhanced head CT. The dose-length product (DLP) was 605.33 mGy-cm. The mA was a djusted according to patient size. Iterative reconstruction technique was employed. FINDINGS: There is no acute intraparenchymal hemorrhage. No evidence of mass lesion. No evidence of a cute infarction. There is an old left frontal infarct. There is mild periventricular and subcortical hypodensity probably related to small vessel ischemic disease. There is mild prominence of the sulci and ventricles related to cerebral atrophy. Intracranial calcified cerebral atherosclerosis is noted. There are no extra-axial collections. There is no mass effect or midline shift. Changes in the globe s are likely from ocular lens surgery. The visualized sinuses and mastoid air cells are well aerated. IMPRESSION: 1. Old left frontal infarct without acute intracranial abnormality. 2. Age related findings. Reviewed, dictated and finalized at location A.
--- NOTE | ~2021-05-27 | XR_ITS ---
XR chest 1V portable DATE: 05/27/2021 11:56 INDICATION: Cough TECHNIQUE: Portable AP chest on 05/27/2021 at 1150 hours COMPARISON: 03/15/2017 AP and lateral chest FINDINGS: Status post sternotomy. Cardiomegaly. Aortic calcification. There is pulmonary vascular congestion. There are bilateral predominantly central and lower lung infi ltrates, which may be due to pulmonary edema. Pneumonia is not excluded. There is minimal if any pleu ral effusion. No pneumothorax. Incidentally noted is an azygos lobe. Diffuse osteopenia. There is old fracture deformity of the proximal right humerus. IMPRESSION: Reviewed, dictated and finalized at location A. IMPRESSION:
--- NOTE | ~2021-05-27 | CT_ITS ---
EXAMINATION: CT brain wo con DATE: 05/27/2021 12:06 INDICATION: Altered mental status TECHNIQUE: Computed tomography (CT) of the head was performed without intravenous contrast. Sagittal and coronal reconstructions were performed. The mA was adjusted according to patient size. Iterative reconstruction technique was employed. The dose-length product was 605.33 mGy-cm. COMPARISON: head CT dated 05/18/2018 FINDINGS: Again seen is a moderate-sized region of encephalomalacia in the left frontal lobe and anterior insul a consistent with old infarct. There is moderate scattered white matter hypoattenuation consistent wi th chronic small vessel ischemic disease. No acute intracranial hemorrhage, acute infarction or abnor mal extra axial fluid collection. Symmetric prominence of the sulci consistent with mild age-appropri ate diffuse cerebral volume loss. Ventricles are normal and symmetric. No mass/mass effect. Changes o f bilateral intraocular lens replacement. The orbits, paranasal sinuses and mastoid air cells are nor mal. IMPRESSION: 1. No acute intracranial process. 2. Moderate-sized chronic infarct involving the left frontal lobe and anterior insula. 3. Age-related changes including mild diffuse volume loss and moderate scattered white matter hypoatt enuation consistent with chronic small vessel ischemic disease. Reviewed, dictated and finalized at location A. IMPRESSION: 1. No acute intracranial process. 2. Moderate-sized chronic infarct involving the left frontal lobe and anterior insula. 3. Age-related changes including mild diffuse volume loss and moderate scattere d white matter hypoattenuation consistent with chronic small vessel ischemic di sease.
--- NOTE | 2021-05-27 11:37 | ECG_ITS ---
Measurements Intervals Center Rate: 85 P: AK: 0 QRS: -34 QRSD: 94 T: 183 QT: 419 QTc: 501 Interpretive Statements ATRIAL FIBRILLATION MARKED LEFT AXIS DEVIATION [QRS AXIS < -30] PATTERN CONSISTENT WITH PULMONARY DISEASE INCOMPLETE RIGHT BUNDLE BRANCH BLOCK [90+ ms QRS DURATION, TERMINAL R IN V1/V2, 40+ ms S IN I/aVL/V4/V5/V6] ST DEVIATION AND MODERATE T-WAVE ABNORMALITY, CONSIDER LATERAL ISCHEMIA [-0.1+ mV T WAVE IN I/aVL/V5/V6] COMPARED TO ECG 05/26/2020 08:09:21 ATRIAL FIBRILLATION NOW PRESENT LEFT-AXIS DEVIATION NOW PRESENT Electronically Signed On 05-27-2021 17:22:26 CDT by Wilmar Horne M.D.
--- NOTE | 2021-05-27 11:53 | ED.AMS ---
HPI - Altered Mental Status General Chief Complaint: Altered Mental Status <Trenton Covarrubias DO - Last Filed: 05/27/21 13:38> Stated Complaint: altered <Trenton Covarrubias DO - Last Filed: 05/27/21 13:38> Time Seen by Provider: 05/27/21 11:46 <Trenton Covarrubias DO - Last Filed: 05/27/21 13:38> Source: EMS <Trenton Covarrubias DO - Last Filed: 05/27/21 13:38> Mode of arrival: EMS <Trenton Covarrubias DO - Last Filed: 05/27/21 13:38> Limitations: altered mental status <Trenton Covarrubias DO - Last Filed: 05/27/21 13:38> History of Present Illness HPI narrative: 70 yo female sent in from [place] secondary to altered mental status. She has an underlying history of dementia, DM, and CAD with prior stents. However, it seems this has been going for for a month or more. Unsure what her baseline status is. No documentation of fever or cough. Patient answers no questions even her name. When asked if she has any pain she shakes her head no . Additional history is not obtainable. <Trenton Covarrubias DO - Last Filed: 05/27/21 13:38> MD complaint: altered mental status <Trenton Covarrubias DO - Last Filed: 05/27/21 13:38> Onset (ago): week(s) (4 weeks) <Trenton Covarrubias DO - Last Filed: 05/27/21 13:38> Related Data Home Medications: Home Medications Medication Instructions Recorded Confirmed Bydureon BCise 2 mg SUBCUT WEEKLY 05/25/20 05/25/20 Tresiba FlexTouch U-200 22 unit SUBCUT HS 05/25/20 05/25/20 aspirin 81 mg PO DAILY 05/25/20 05/25/20 bupropion HCl 150 mg PO DAILY 05/25/20 05/25/20 cyanocobalamin (vitamin B-12) 2,000 mcg SUBCUT MONTHLY 05/25/20 05/25/20 donepezil 10 mg PO DAILY 05/25/20 05/25/20 escitalopram oxalate 20 mg PO DAILY 05/25/20 05/25/20 ferrous sulfate 325 mg PO BID 05/25/20 05/25/20 furosemide 40 mg PO DAILY 05/25/20 05/25/20 gabapentin 100 mg PO BID 05/25/20 05/25/20 glimepiride 2 mg PO BID 05/25/20 05/25/20 levothyroxine 88 mcg PO DAILY 05/25/20 05/25/20 metformin 500 mg PO BID 05/25/20 05/25/20 nadolol See Rx Instructions .ROUTE .COMPLEX 05/25/20 05/25/20 potassium chloride [Klor-Con M20] 20 meq PO DAILY 05/25/20 05/25/20 sennosides [Senna Lax] 8.6 mg PO DAILY 05/25/20 05/25/20 <Trenton Covarrubias DO - Last Filed: 05/27/21 13:38> Allergies/Adverse Reactions: Allergies Allergy/AdvReac Type Severity Reaction Status Date / Time azithromycin Allergy Unknown Hives Verified 05/27/21 12:03 lisinopril Allergy Unknown Unknown Verified 05/27/21 12:03 niacin Allergy Unknown Diarrhea Verified 05/27/21 12:03 ranolazine [From Ranexa] Allergy Unknown Verified 05/27/21 12:05 rosuvastatin [From Crestor] Allergy Unknown Verified 05/27/21 12:04 simvastatin [From Zocor] Allergy Unknown Verified 05/27/21 12:06 <Trenton Covarrubias, - Last Filed: 05/27/21 13:38> Review of Systems Review of Systems: Patient answers no questions <Trenton Covarrubias DO - Last Filed: 05/27/21 13:38> ROS unobtainable: Yes unobtainable due to mental status <Trenton Covarrubias DO - Last Filed: 05/27/21 13:38> PMFSH Past Medical History Medical History: Medical History Atrial fibrillation Congestive heart failure Dementia Depression with anxiety DM2 (diabetes mellitus, type 2) H/O gastroesophageal reflux (GERD) Hepatitis Herpes History of stroke Hyperlipidemia Hypertension Hypothyroidism Iron deficiency anemia Neuropathy Osteoporosis Retinopathy <Trenton Covarrubias DO - Last Filed: 05/27/21 13:38> Surgical History Surgical History: Surgical History H/O bladder repair surgery H/O heart artery stent Multiple times H/O two vessel coronary artery bypass graft H/O: hysterectomy Hx of cataract surgery Bilateral S/P appendectomy S/P LASIK surgery of both eyes <Trenton Covarrubias DO - Last Filed: 05/27/21 13:38> Family History Family History: Abebe
[2021-05-27 12:17] LABS: Glucose Point of Care 349 mg/dl (65-105)
[2021-05-27 12:47] LABS: Basophils Absolute Auto 0.1 K/mm3 (0.0-0.1); Basophils Percent Auto 1.2 % (0.2-1.2); Eosinophils Absolute Auto 0.2 K/mm3 (0-0.3); Eosinophils Percent Auto 4.4 % (0-4.4); Hematocrit 36.2 % (37.0-47.0); Hemoglobin 11.5 g/dL (12.0-15.0); Immature Granulocyte Absolute 0.01 K/mm3 (0.00-0.031); Immature Granulocyte Percent A 0.2 % (0-0.5); Immature Platelet Fraction Pct 3.3 % (0.9-11.2); Lymphocytes Absolute Auto 0.76 K/mm3 (0.9-3.2); Lymphocytes Percent Auto 15.8 % (18.3-44.2); Mean Corpuscular HGB Conc 31.8 g/dl (32-36); Mean Corpuscular Hemoglobin 35.2 pg (26-34); Mean Corpuscular Volume 110.7 fl (80-100); Monocytes Absolute Auto 0.8 K/mm3 (0.1-0.6); Monocytes Percent Auto 15.8 % (2.6-8.5); Neutrophils Percent Auto 62.6 % (45.5-73.1); Platelet Count Result 119 k/mm3 (150-375); Red Blood Count 3.27 M/mm3 (4.2-5.4); Red Cell Distribution Width 15.7 % (11.5-14.5); White Blood Count 4.8 K/mm3 (4.5-10.0)
[2021-05-27 12:59] LABS: Alanine Aminotransferase 13 U/L (4-35); Albumin Level 3.5 g/dL (3.5-5.1); Alkaline Phosphatase 92 U/L (38-126); Aspartate Amino Transferase 30 U/L (14-36); Bilirubin,Total 1.6 mg/dL (0.2-1.3); Blood Urea Nitrogen 6 mg/dL (7-17); Calcium 8.7 mg/dL (8.4-10.2); Carbon Dioxide 23 mmol/L (22-30); Estimated CRCL calculation 104 ml/min; Estimated Glomerular Filt Rate > 60; Glucose 310 mg/dL (65-110)
[2021-05-27 13:31] LABS: INR 1.3; Prothrombin Time 15.3 Seconds (11.1-14.7)
[2021-05-27 13:32] LABS: Partial Thromboplastin Time 31.5 SECONDS (22.3-36.8)
[2021-05-27 13:35] LABS: Lactic Acid Reflex 2.5 mmol/L (0.7-2.1)
[2021-05-27 13:36] LABS: Add Urine Microscopic? YES; Appearance Urine Clear (Clear); Bacteria Urine 4+ /hpf; Bilirubin Urine Negative (Negative); Blood Urine Negative (Negative); Color Urine Yellow (Yellow); Glucose Urine UA 3+ mg/dL (Negative); Ketones Urine Negative (Negative); Leukocyte Esterase Ur Negative LEU/UL (Negative); Mucus Urine Rare /lpf; Nitrate Urine Positive (Negative); Protein Urine Negative (Negative); Specific Grav Ur 1.024 (1.001-1.035); Squamous Epithelial Cell Urine Occasional /hpf (Few)
[2021-05-27 14:02] LABS: Anion Gap 7 mmol/L (8-16); Chloride 107 mmol/L (98-107); Potassium 4.2 mmol/L (3.4-5.0); Sodium 137 mmol/L (137-145)
--- NOTE | 2021-05-27 15:15 | ADMGEN ---
This patient, Teena Tinoco, was admitted to [facility] Surg Room 325-01 at 1500. Patient/family oriented to hospital policies and general routines including ID bracelet, bed and alarms, visiting hours, pain management, procedures, bathroom and other care routines, personal items, smoking policy, room service/diet, and visiting hours. Information on how to activate the Rapid Response Team has been discussed. Patient/Family are encouraged to report perceived risks to care and to ask questions if they do not understand what they are told or what they should do.
[2021-05-27] MEDS: SODIUM CHLORIDE 0.9% IV 1,000 ML 100 ML IV CONT (15:58)
[2021-05-27 16:17] LABS: Reflex Lactic Acid Yes or No Add Lactic
[2021-05-27 16:51] LABS: Glucose Point of Care 258 mg/dl (65-105)
--- NOTE | 2021-05-27 18:05 | PC.NURSE ---
medications obtained from med list provided by symone lopez. we had a different list in the computer, so i called the facility and talked with the nurse regarding medications not on current list. Nurse states that patient is not taking bupropion, bydureon, vitamin b12, colace, iron, lasix, gabapentin, glimepride, potassium, or tresiba. medications removed from home list.
--- NOTE | 2021-05-27 19:47 | PM.IMHP ---
H&P: HPI History of Present Illness Date/Time: Patient was placed observation status for expected length of stay less than 23 hours for management, will plan to re-evaluate tomorrow for improvement. 05/27/21 19:47 Chief Complaint: Altered mental status Narrative: Ms Tinoco is a 70-year-old female who was brought to emergency room for altered mental status. Patient was recently discharged from [facility], after having an ORIF to her distal right humerus, and was sent to extended care facility for rehab. Patient's dabvmkuc-ld-bzh states that over last few days she realized that her mwchrk-om-rzs was acting more confused today the patient was not answering questions and not responding to her name. Patient's uwwfljus-or-yto states the patient does have underlying dementia, but this is not her normal baseline. Patient's yytijcac-kw-trg states that at [facility] patient did have a urinary tract infection which was treated. Upon evaluation in emergency room patient was noted to have a urinary tract infection she was given IV antibiotics as well as IV fluids of started to respond to questions, but remained alert oriented to self only. Patient does have a known history of CVA with expressive aphasia, CAD status post coronary artery bypass grafting status post stent placement, congestive heart failure, atrial fibrillation, diabetes mellitus, dementia, VALDOVINOS, esophageal varices status post banding, and recent right distal humeral fracture status post ORIF. Review of Systems Review of Systems: I am unable to obtain review of systems secondary to patient's altered mental status. [facility] Past Medical History Medical History Atrial fibrillation Congestive heart failure Dementia Depression with anxiety DM2 (diabetes mellitus, type 2) H/O gastroesophageal reflux (GERD) Hepatitis Herpes History of stroke Hyperlipidemia Hypertension Hypothyroidism Iron deficiency anemia Neuropathy Osteoporosis Retinopathy Surgical History Surgical History H/O bladder repair surgery H/O heart artery stent Multiple times H/O two vessel coronary artery bypass graft H/O: hysterectomy Hx of cataract surgery Bilateral S/P appendectomy S/P LASIK surgery of both eyes Family History Family History Mother Acute myocardial infarction Diabetes mellitus Hypertension Cerebrovascular accident Heart disease Sibling Heart disease Acute myocardial infarction Diabetes mellitus Social History Social History Social History: The patient resides at [facility] she is listed as a full code. She tells me that she is now for about 11 years. She has a son listed Edison and a daughter Bhavna. The patient was listed as a homemaker. Patient was a former smoker. No alcohol marijuana illicit drugs. Smoking packs per day: 1 Smoking cigarettes per day: 20.0 Years smoked: 20 Smoking pack-years: 20.00 Smoking status: Never smoker Tobacco type: cigarettes Second hand tobacco smoke exposure: No Alcohol intake: never Substance use: never Gender identity (if verbalized by the patient): Female Spiritual care concerns: No Meds Home Medications and Allergies Home Medications Medication Instructions Recorded Confirmed Type aspirin 81 mg PO DAILY 05/25/20 05/27/21 History donepezil 10 mg PO HS 05/25/20 05/27/21 History escitalopram oxalate 20 mg PO DAILY 05/25/20 05/27/21 History levothyroxine 88 mcg PO DAILY 05/25/20 05/27/21 History metformin 1,000 mg PO BID 05/25/20 05/27/21 History nadolol 40 mg PO QPM 05/25/20 05/27/21 History sennosides [Senna Lax] 8.6 mg PO DAILY 05/25/20 05/27/21 History acetaminophen 500 mg PO TID 05/27/21 05/27/21 History alendronate 70 m
[2021-05-27] MEDS: DONEPEZIL HCL 10 MG TABLET PO (21:46)
[2021-05-27] MEDS: nadoloL 20 MG TABLET 40 MG PO (21:47)
[2021-05-27] MEDS: oxyCODONE HCL (*CRX) 2.5 MG TAB IR PO (21:53)
[2021-05-27 22:46] LABS: Glucose Point of Care 217 mg/dl (65-105)
[2021-05-28] VITALS (12 sets, daily range): BP systolic 91–125; BP diastolic 51–85; PULSE 68–84; RESP 16–20; TEMP 36.1–36.9; O2SAT 94–100
[2021-05-28] MEDS: SODIUM CHLORIDE 0.9% IV 1,000 ML 100 ML IV CONT ×3 (03:25→23:13)
[2021-05-28] MEDS: LEVOTHYROXINE SODIUM 88 MCG TABLET PO (06:15)
[2021-05-28] MEDS: ACETAMINOPHEN 500 MG TABLET PO ×3 (06:22→21:07)
[2021-05-28 06:52] LABS: Basophils Absolute Auto 0.1 K/mm3 (0.0-0.1); Basophils Percent Auto 1.3 % (0.2-1.2); Eosinophils Absolute Auto 0.2 K/mm3 (0-0.3); Eosinophils Percent Auto 3.8 % (0-4.4); Hematocrit 33.9 % (37.0-47.0); Hemoglobin 10.5 g/dL (12.0-15.0); Immature Granulocyte Absolute 0.01 K/mm3 (0.00-0.031); Immature Granulocyte Percent A 0.2 % (0-0.5); Lymphocytes Absolute Auto 0.57 K/mm3 (0.9-3.2); Lymphocytes Percent Auto 12.6 % (18.3-44.2); Mean Corpuscular Hemoglobin 34.2 pg (26-34); Mean Corpuscular Volume 110.4 fl (80-100); Mean Platelet Volume 10.3 fl (7.4-10.4); Monocytes Absolute Auto 0.7 K/mm3 (0.1-0.6); Monocytes Percent Auto 14.8 % (2.6-8.5); Neutrophils Absolute Auto 3.1 K/mm3 (1.3-6.7); Neutrophils Percent Auto 67.3 % (45.5-73.1); Platelet Count Result 104 k/mm3 (150-375); Red Blood Count 3.07 M/mm3 (4.2-5.4); Red Cell Distribution Width 15.7 % (11.5-14.5); White Blood Count 4.5 K/mm3 (4.5-10.0)
[2021-05-28 07:11] LABS: Alanine Aminotransferase 11 U/L (4-35); Albumin Level 3.3 g/dL (3.5-5.1); Alkaline Phosphatase 70 U/L (38-126); Anion Gap 7 mmol/L (8-16); Aspartate Amino Transferase 28 U/L (14-36); Bilirubin,Total 1.7 mg/dL (0.2-1.3); Blood Urea Nitrogen 7 mg/dL (7-17); Calcium 8.2 mg/dL (8.4-10.2); Carbon Dioxide 20 mmol/L (22-30); Chloride 108 mmol/L (98-107); Estimated CRCL calculation 96 ml/min; Estimated Glomerular Filt Rate > 60; Glucose 231 mg/dL (65-110); Potassium 4.1 mmol/L (3.4-5.0); Sodium 135 mmol/L (137-145)
[2021-05-28 07:57] LABS: Glucose Point of Care 219 mg/dl (65-105)
[2021-05-28] MEDS: nadoloL 20 MG TABLET 80 MG PO (08:24)
[2021-05-28] MEDS: INSULIN ASPART (*BKC) 100 UNITS/ML SUB-Q (08:24)
[2021-05-28] MEDS: ENOXAPARIN 40 MG/0.4 ML SYRINGE SUB-Q (08:24)
[2021-05-28] MEDS: CHOLECALCIFEROL 1,000 UNITS TABLET 2000 UNITS PO (08:24)
[2021-05-28] MEDS: SENNOSIDES 8.6 MG TABLET PO (08:25)
[2021-05-28] MEDS: PANTOPRAZOLE SOD SESQUIHYDRATE 20 MG TAB PO (08:25)
[2021-05-28] MEDS: ESCITALOPRAM OXALATE 10 MG TABLET 20 MG PO (08:25)
[2021-05-28] MEDS: MULTIVITAMINS THERAPEUTIC TAB (*BKC) 1 TABLET PO (08:25)
[2021-05-28] MEDS: ASPIRIN 81 MG ENTERIC TABLET PO (08:25)
[2021-05-28] MEDS: oxyCODONE HCL (*CRX) 2.5 MG TAB IR PO ×2 (08:27→21:07)
--- NOTE | 2021-05-28 09:59 | PM.IMPN ---
Progress Note: A&P Assessment and Plan (1) Acute UTI: Code(s): N39.0 - Urinary tract infection, site not specified Status: Acute Assessment and Plan: Patient received a dose of Rocephin in the emergency room will continue with current antibiotic and await culture and sensitivity reports. CBC, CMP, UA, reviewed Obtain urine culture if needed Follow temp curve, cultures, WBC, and VS (2) Acute metabolic encephalopathy: Code(s): G93.41 - Metabolic encephalopathy Status: Acute Assessment and Plan: Patient is receiving antibiotic therapy on IV fluids and her mentation is beginning to improve. Will continue with current regimen and monitor the patient's clinical course Obtain an MRI of the brain without contrast. Patient was somnolent this morning, responded to painful stimuli. Obtain an ABG, B12, TSH and ammonia level. Transferred to IMU Neuro q.2 hours (3) Hypertension: Code(s): I10 - Essential (primary) hypertension Status: Chronic Assessment and Plan: Will resume patient's home medications and adjust medications accordingly for optimal blood pressure control. (4) Atrial fibrillation: Code(s): I48.91 - Unspecified atrial fibrillation Status: Chronic Assessment and Plan: Patient's olsxzjyx-mj-fxp states the patient has only been on aspirin for anticoagulation. Patient's ventricular rate is well controlled at this time. (5) DM2 (diabetes mellitus, type 2): Code(s): E11.9 - Type 2 diabetes mellitus without complications Status: Chronic Assessment and Plan: There are discrepancies between patient's previous home medications and what patient extended care facility is stating patient is currently taking for her diabetes mellitus. Will have blood glucose monitoring before meals and at bedtime sliding scale insulin available. Subjective Date/time seen: 05/28/21 09:59 Patient was somnolent bedside this morning. She responded to painful stimuli and was able to respond minimally with a verbal stimuli. She was unable to follow simple commands such as squeezing my hand or moving extremities. Her right lower extremity appeared flaccid. CT of the head reviewed,. Patient has had a previous stroke in the past. Blood glucose at bedside was 88, vital signs stable, pupils 2+ brisk and reactive to light. Will order an ABG, ammonia level, B12 and TSH, pending MRI of the brain without contrast. Neuro q.2 hours and tele ordered. Review of Systems Review of Systems: All systems reviewed & are unremarkable except as noted in HPI and below ROS unobtainable: Yes unobtainable due to mental status Exam Narrative: Constitutional: Patient is well-nourished, somnolent. Patient is nonresponsive to verbal stimuli, will respond to his painful stimuli. HEENT: Moist mucous membranes. No scleral icterus. No lymphadenopathy. Neck: No carotid bruits noted no JVD noted Lungs: Lung sounds are diminished to auscultation bilaterally. No accessory muscle use. No rhonchi, rales, or wheezes noted. Cardiovascular: Apical pulse is irregularly irregular, S1 variable S2, no S3 or S4. 3/6 systolic murmur noted. Abdomen: Soft, round, and nontender. No palpable masses. Extremities: Patient has swelling and ecchymosis noted to her right upper extremity. Patient has a well-approximated incision to her distal humerus area with no erythema or drainage noted. Neurological: No focal neurological deficits. Psychiatric: Cooperative, appropriate mood, and affect Objective Data Vital Signs Vital Signs: Vital Signs - 24 hr 05/27/21 11:25 05/27/21 13:26 05/27/21 14:48 Temperature 98.6 F Pulse Rate 80 87 88 Respiratory Rate 20 22 H 20 Blood Pressure 110/79 117/67 123/76 Pulse Oximetry 96 99 94 05/27/21 14:54 05/27/21 15:34 05/27/21 20:25 Temperature 97.1 F L Pulse Rate 99 93 109 H Respiratory Rate 18 18 18 Blood Pressure 148/87 H 113/53 L Pulse Oximetry 98 99
[2021-05-28 10:42] LABS: Alveolar/Arterial O2 Gradient 43.5 mmHg; Base Excess ABG -0.7 mEq/l (+/-2.0); Fractional Inspired Oxygen 21 %; HCO3 ABG 22.9 mEq/l (22.0-26.0); Oxygen Content ABG 14.7 %vol (16.0-22.0); Oxygen Saturation ABG 93.8 % (95.0-100.0); Oxyhemoglobin 91.7 % THb (90.0-100.0); PCO2 ABG 34.1 mmHg (35.0-45.0); PO2 ABG 65.4 mmHg (80.0-100.0); PO2 FiO2 Ratio Arterial Blood 3.11 %; Total Hemoglobin 11.4 g/dL (12.0-18.0); pH ABG 7.445 (7.350-7.450)
[2021-05-28 10:44] LABS: Site Drawn LEFT BRACHIAL
[2021-05-28 11:18] LABS: Glucose Point of Care 170 mg/dl (65-105)
[2021-05-28 11:25] LABS: Ammonia 24 umol/L (9-30)
--- NOTE | 2021-05-28 12:23 | PC.NURSE ---
Patient arrived to IMU room 232 at 1140. Transported by bed. Patient oriented to room policies and procedures. Call light within reach and bed alarms on. This nurse to resume patient care.
[2021-05-28 12:27] LABS: Vitamin B12 > 1000.0 pg/mL (239-931)
[2021-05-28 12:56] LABS: Glucose Point of Care 144 mg/dl (65-105)
[2021-05-28 16:06] LABS: Glucose Point of Care 133 mg/dl (65-105)
[2021-05-28 20:50] LABS: Glucose Point of Care 237 mg/dl (65-105)
[2021-05-28] MEDS: DONEPEZIL HCL 10 MG TABLET PO (21:06)
[2021-05-28] MEDS: nadoloL 20 MG TABLET 40 MG PO (21:07)
[2021-05-29] VITALS (9 sets, daily range): BP systolic 108–124; BP diastolic 69–78; PULSE 62–75; RESP 16–20; TEMP 36.1–36.3; O2SAT 93–100
[2021-05-29] MEDS: ACETAMINOPHEN 500 MG TABLET PO (06:28)
[2021-05-29] MEDS: LEVOTHYROXINE SODIUM 88 MCG TABLET PO (06:28)
[2021-05-29 08:05] LABS: Glucose Point of Care 179 mg/dl (65-105)
[2021-05-29] MEDS: SENNOSIDES 8.6 MG TABLET PO (08:14)
[2021-05-29] MEDS: SODIUM CHLORIDE 0.9% IV 1,000 ML 100 ML IV CONT (08:15)
[2021-05-29] MEDS: CHOLECALCIFEROL 1,000 UNITS TABLET 2000 UNITS PO (08:19)
[2021-05-29] MEDS: ENOXAPARIN 40 MG/0.4 ML SYRINGE SUB-Q (08:20)
[2021-05-29] MEDS: PANTOPRAZOLE SOD SESQUIHYDRATE 20 MG TAB PO (08:20)
[2021-05-29] MEDS: ESCITALOPRAM OXALATE 10 MG TABLET 20 MG PO (08:20)
[2021-05-29] MEDS: MULTIVITAMINS THERAPEUTIC TAB (*BKC) 1 TABLET PO (08:20)
[2021-05-29] MEDS: ASPIRIN 81 MG ENTERIC TABLET PO (08:20)
[2021-05-29] MEDS: nadoloL 20 MG TABLET 80 MG PO (08:21)
[2021-05-29 09:35] LABS: Basophils Absolute Auto 0.1 K/mm3 (0.0-0.1); Basophils Percent Auto 2.2 % (0.2-1.2); Eosinophils Absolute Auto 0.2 K/mm3 (0-0.3); Eosinophils Percent Auto 5.2 % (0-4.4); Hematocrit 36.2 % (37.0-47.0); Hemoglobin 11.3 g/dL (12.0-15.0); Immature Granulocyte Absolute 0.02 K/mm3 (0.00-0.031); Immature Granulocyte Percent A 0.6 % (0-0.5); Lymphocytes Absolute Auto 0.78 K/mm3 (0.9-3.2); Lymphocytes Percent Auto 21.5 % (18.3-44.2); Mean Corpuscular HGB Conc 31.2 g/dl (32-36); Mean Corpuscular Hemoglobin 34.7 pg (26-34); Mean Platelet Volume 10.1 fl (7.4-10.4); Monocytes Absolute Auto 0.9 K/mm3 (0.1-0.6); Monocytes Percent Auto 24.2 % (2.6-8.5); Neutrophils Absolute Auto 1.7 K/mm3 (1.3-6.7); Neutrophils Percent Auto 46.3 % (45.5-73.1); Platelet Count Result 106 k/mm3 (150-375); Red Blood Count 3.26 M/mm3 (4.2-5.4); Red Cell Distribution Width 15.9 % (11.5-14.5); White Blood Count 3.6 K/mm3 (4.5-10.0)
[2021-05-29] MEDS: CEFDINIR 300 MG CAPSULE PO (09:40)
[2021-05-29 09:46] LABS: Alanine Aminotransferase 13 U/L (4-35); Alkaline Phosphatase 65 U/L (38-126); Anion Gap 4 mmol/L (8-16); Aspartate Amino Transferase 28 U/L (14-36); Bilirubin,Total 1.4 mg/dL (0.2-1.3); Blood Urea Nitrogen 8 mg/dL (7-17); Carbon Dioxide 21 mmol/L (22-30); Chloride 111 mmol/L (98-107); Estimated CRCL calculation 96 ml/min; Estimated Glomerular Filt Rate > 60; Glucose 216 mg/dL (65-110); Magnesium 1.5 mg/dL (1.6-2.3); Sodium 136 mmol/L (137-145)
--- NOTE | 2021-05-29 11:35 | PM.DS ---
DS: Admitting Diagnosis Discharge Date 05/29/2021 Admitting Diagnosis Altered mental status Acute UTI Acute metabolic encephalopathy new line hypertension new line AFib new line diabetes mellitus type 2 DS: Discharge Diagnosis Discharge Diagnosis (1) Acute UTI: Code(s): N39.0 - Urinary tract infection, site not specified Status: Acute Assessment and Plan: Patient received a dose of Rocephin in the emergency room will continue with current antibiotic and await culture and sensitivity reports. CBC, CMP, UA, reviewed Obtain urine culture if needed Follow temp curve, cultures, WBC, and VS (2) Acute metabolic encephalopathy: Code(s): G93.41 - Metabolic encephalopathy Status: Acute Assessment and Plan: Patient is receiving antibiotic therapy on IV fluids and her mentation is beginning to improve. Will continue with current regimen and monitor the patient's clinical course Obtain an MRI of the brain without contrast. Patient was somnolent this morning, responded to painful stimuli. Obtain an ABG, B12, TSH and ammonia level. Transferred to IMU Neuro q.2 hours (3) Hypertension: Code(s): I10 - Essential (primary) hypertension Status: Chronic Assessment and Plan: Will resume patient's home medications and adjust medications accordingly for optimal blood pressure control. (4) Atrial fibrillation: Code(s): I48.91 - Unspecified atrial fibrillation Status: Chronic Assessment and Plan: Patient's jxlvzypm-sj-ljy states the patient has only been on aspirin for anticoagulation. Patient's ventricular rate is well controlled at this time. (5) DM2 (diabetes mellitus, type 2): Code(s): E11.9 - Type 2 diabetes mellitus without complications Status: Chronic Assessment and Plan: There are discrepancies between patient's previous home medications and what patient extended care facility is stating patient is currently taking for her diabetes mellitus. Will have blood glucose monitoring before meals and at bedtime sliding scale insulin available. DS: Summary Hospital Course Reason for hospitalization: Altered mental status x1 month Hospital Course: 70-year-old female who was brought to emergency room for altered mental status. she has a history of CVA with expressive aphasia, CAD status post coronary artery bypass grafting status post stent placement, congestive heart failure, atrial fibrillation, diabetes mellitus, dementia, VALDOVINOS, esophageal varices status post banding, and recent right distal humeral fracture status post ORIF. Patient was recently discharged from [facility], after having an ORIF to her distal right humerus, and was sent to extended care facility for rehab. Patient's ghrpablz-kn-nkw states that over last few days she realized that her xtjtjn-qq-ubk was acting more confused today the patient was not answering questions and not responding to her name. Patient's xwvonivm-xi-xuv states the patient does have underlying dementia, but this is not her normal baseline. Patient's xjagczlp-ax-hmv states that at [facility] patient did have a urinary tract infection which was treated. Upon evaluation in emergency room patient was noted to have a urinary tract infection she was given IV antibiotics as well as IV fluids of started to respond to questions, but remained alert oriented to self only. While in the emergency department the patient had labs and imaging obtained. Labs reported WBC 4.8, hemoglobin 11.5, hematocrit 36.2 and platelet of 119, sodium 137, potassium 4.2, chloride 107 and carbon dioxide 23 and normal LFTs. The patient did have a urine culture obtained which revealed Escherichia coli, pansensitive to its cephalosporins. The patient was initiated on ceftriaxone originally in transition to cefdinir 300 mg b.i.d. during hospitalization. A CT of the head revealed old left frontal infarct without acute intracranial abnormalities
[2021-05-29] MEDS: FUROSEMIDE INJ 40 MG/4 ML VIAL 20 MG IV PUSH (11:59)
[2021-05-29 12:16] LABS: Glucose Point of Care 306 mg/dl (65-105)
[2021-05-29] MEDS: INSULIN ASPART (*BKC) 100 UNITS/ML SUB-Q (12:30)
--- NOTE | 2021-05-29 12:55 | PC.NURSE ---
[facility] called and updated on patient discharge and condition. Report given to Lacie RN at 1248. All discharge information discussed. Discharge packet faxed to receiving facility. Patient to be transported by ambulance.
[2021-05-29 13:17] LABS: SARS-CoV-2 RNA PCR Negative
[2021-05-29] MEDS: MAGNESIUM OXIDE 400 MG TABLET PO (13:37)
== END 2021-05-29 14:10 | DRG 689 ==
LOC: ANHED 14:05 → ANH3MEDSUR 14:45 → ANHIMU 05-28 11:15
PROVIDERS: Emergency Medicine; Admitting Provider Family Medicine; Emergency Provider Emergency Medicine; PCP Internal Medicine; Visit Provider Nurse Practitioner Family
DX: N39.0 Urinary tract infection, site not specified (principal); G93.41 Metabolic encephalopathy; Z20.822 Contact with and (suspected) exposure to COVID-19; F03.90 Unspecified dementia, unspecified severity, without behavioral disturbance, psychotic disturbance, mood disturbance, and anxiety; I25.10 Atherosclerotic heart disease of native coronary artery without angina pectoris; Z95.5 Presence of coronary angioplasty implant and graft; Z79.82 Long term (current) use of aspirin; Z79.84 Long term (current) use of oral hypoglycemic drugs; F32.A Depression, unspecified; F41.9 Anxiety disorder, unspecified; I48.91 Unspecified atrial fibrillation; E78.5 Hyperlipidemia, unspecified; I11.0 Hypertensive heart disease with heart failure; I50.9 Heart failure, unspecified; E03.9 Hypothyroidism, unspecified; E11.40 Type 2 diabetes mellitus with diabetic neuropathy, unspecified; E11.319 Type 2 diabetes mellitus with unspecified diabetic retinopathy without macular edema; Z87.891 Personal history of nicotine dependence; I69.320 Aphasia following cerebral infarction; Z95.1 Presence of aortocoronary bypass graft; K75.81 Nonalcoholic steatohepatitis (NASH); S42.401D Unspecified fracture of lower end of right humerus, subsequent encounter for fracture with routine healing; X58.XXXD Exposure to other specified factors, subsequent encounter
CPT/HCPCS: 36415; 36600; 51701; 70450; 71045; 80053; 81001; 82140; 82607; 82805; 82948; 83605; 83735; 84443; 85025; 85055; 85610; 85730; 87040; 87077; 87086; 87186; 93005; 96365; 96372; 96376; 99285; A9270; C9803; G0378; J0696; J1650; J1815; J1940; J7030; U0003; U0005

== ENCOUNTER 2021-06-25 12:10 | Emergency (ER) | payer MEDICARE, SELFPAY ==
[2021-06-25 12:18] VITALS: BP 100/82; PULSE 71; RESP 14; TEMP 36.6; O2SAT 94
--- NOTE | 2021-06-25 12:30 | ED.GENADULT ---
HPI - General Adult General Chief complaint: Unspecified Stated complaint: Trouble waking this AM, per tech acting normal Time Seen by Provider: 06/25/21 12:16 History of Present Illness HPI narrative: [place] sent [place] for more lethargic when trying ot wake up but then normal for the tech, reviewing old records was here 05/28 for aloc when compltetly unresponsive which wasn't today and had neg ct head and had uti finished cefinidir abx. pt says feels fine is hungry accu 200s low per ems and per NH they don't walk her b/c she wouldn't do therapy post old stroke however here stood and walked with nursing support no c/o urine pain, abd pain/cp/sob/fn/v/d/uri or other issues MD complaint: pt sent from [place] for more lethargic when trying to wake up but then normal Related Data Home Medications Medication Instructions Recorded Confirmed aspirin 81 mg PO DAILY 05/25/20 05/27/21 donepezil 10 mg PO HS 05/25/20 05/27/21 escitalopram oxalate 20 mg PO DAILY 05/25/20 05/27/21 levothyroxine 88 mcg PO DAILY 05/25/20 05/27/21 metformin 1,000 mg PO BID 05/25/20 05/27/21 nadolol 40 mg PO QPM 05/25/20 05/27/21 sennosides [Senna Lax] 8.6 mg PO DAILY 05/25/20 05/27/21 acetaminophen 500 mg PO TID 05/27/21 05/27/21 alendronate 70 mg PO WEEKLY 05/27/21 05/27/21 calcium carbonate-vitamin D3 2 tablet PO DAILY 05/27/21 05/27/21 [Calcium with Vitamin D] cholecalciferol (vitamin D3) 2,000 unit PO DAILY 05/27/21 05/27/21 [Vitamin D3] multivitamin 1 tablet PO DAILY 05/27/21 05/27/21 nadolol 80 mg PO DAILY 05/27/21 05/27/21 nitroglycerin [Nitrolingual] 400 mcg SUBLINGUAL Q5MIN PRN 05/27/21 05/27/21 oxycodone 2.5 mg PO Q12H 05/27/21 05/27/21 pantoprazole 20 mg PO DAILY 05/27/21 05/27/21 Allergies Allergy/AdvReac Type Severity Reaction Status Date / Time azithromycin Allergy Unknown Hives Verified 05/27/21 12:03 lisinopril Allergy Unknown Unknown Verified 05/27/21 12:03 niacin Allergy Unknown Diarrhea Verified 05/27/21 12:03 ranolazine [From Ranexa] Allergy Unknown Verified 05/27/21 12:05 rosuvastatin [From Crestor] Allergy Unknown Verified 05/27/21 12:04 simvastatin [From Zocor] Allergy Unknown Verified 05/27/21 12:06 Review of Systems Review of Systems: CONSTITUTIONAL: Denies fever, chills, or sweats. EYES: Denies visual changes, redness, or discharge. ENT: Denies rhinorrhea, congestion, sore throat, or otalgia. CARDIOVASCULAR: Denies chest pain, palpitations, or edema. RESPIRATORY: Denies cough or dyspnea. GASTROINTESTINAL: Denies abdominal pain, nausea, vomiting, or diarrhea. GENITOURINARY: Denies dysuria or hematuria. SKIN: Denies rash or itching. MUSCULOSKELETAL: Denies back pain, joint pain, or myalgia. NEUROLOGIC: Denies headache, numbness, or weakness. PSYCHIATRIC: Denies anxiety or depression. 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 She tell
--- NOTE | 2021-06-25 12:31 | PC.NURSE ---
Pt assisted to side of bed and ambulated a few steps in room with assistance x2. Pt has no complaints at time. Called [facility] and they state that she normally does not walk for them at all. She states this morning she had to sternal rub her to wake her up and was more lethargic than usual. Closer to the time of being sent out she was acting her normal.
[2021-06-25 12:52] VITALS: BP 98/48; PULSE 72; RESP 16; O2SAT 93
--- NOTE | 2021-06-25 12:52 | PC.NURSE ---
Ordered lunch tray. Pt also had a bm so was cleaned up and depends changed.
[2021-06-25 14:04] VITALS: BP 102/60; PULSE 85; O2SAT 92
[2021-06-25 14:12] VITALS: BP 102/60; PULSE 81; RESP 17; O2SAT 92
--- NOTE | 2021-06-25 14:15 | PC.NURSE ---
Called and left message with Tomas Hogan.
[2021-06-25 15:45] VITALS: BP 96/76; PULSE 82; RESP 16; O2SAT 100
== END 2021-06-25 15:46 ==
PROVIDERS: Emergency Provider Emergency Medicine; PCP Internal Medicine
DX: Z04.89 Encounter for examination and observation for other specified reasons (principal); I48.91 Unspecified atrial fibrillation; I50.9 Heart failure, unspecified; I11.0 Hypertensive heart disease with heart failure; F03.90 Unspecified dementia, unspecified severity, without behavioral disturbance, psychotic disturbance, mood disturbance, and anxiety; E11.40 Type 2 diabetes mellitus with diabetic neuropathy, unspecified; E11.319 Type 2 diabetes mellitus with unspecified diabetic retinopathy without macular edema; E78.5 Hyperlipidemia, unspecified; E03.9 Hypothyroidism, unspecified; D50.9 Iron deficiency anemia, unspecified; K21.9 Gastro-esophageal reflux disease without esophagitis; Z86.73 Personal history of transient ischemic attack (TIA), and cerebral infarction without residual deficits; Z95.5 Presence of coronary angioplasty implant and graft; Z95.1 Presence of aortocoronary bypass graft; Z98.42 Cataract extraction status, left eye; Z98.41 Cataract extraction status, right eye; Z87.891 Personal history of nicotine dependence; Z79.84 Long term (current) use of oral hypoglycemic drugs; Z79.82 Long term (current) use of aspirin
CPT/HCPCS: 99281

== ENCOUNTER 2021-09-16 13:53 | Inpatient (IN) | payer MEDICARE, MEDICAID, SELFPAY ==
[2021-09-16] VITALS (13 sets, daily range): BP systolic 66–105; BP diastolic 36–64; PULSE 72–89; RESP 14–17; TEMP 35.5–36.6; O2SAT 90–100; BMI 40.3
--- NOTE | ~2021-09-16 | XR_ITS ---
EXAMINATION: XR chest 1V DATE: 09/16/2021 15:35 INDICATION: Confusion. TECHNIQUE: A single frontal view of the chest was obtained. COMPARISON: Chest single view 05/27/2021, CT abdomen and pelvis 03/24/2016 FINDINGS: The patient is rotated to her left. There is a diffuse interstitial pattern in the lungs. T here are airspace opacities in all lung zones bilaterally with a very hilar and right basilar predomi nance. No pleural effusion or pneumothorax. Cardiomegaly is noted. Median sternotomy wires and medias tinal surgical clips are seen, likely from prior coronary artery bypass grafting. IMPRESSION: 1. Diffuse lung disease with mild worsening at right lung base, consistent with pulmonary edema versu s pneumonia. 2. Cardiomegaly. Reviewed, dictated and finalized at location A. IMPRESSION: 1. Diffuse lung disease with mild worsening at right lung base, consistent with pulmonary edema versus pneumonia. 2. Cardiomegaly.
--- NOTE | ~2021-09-16 | CT_ITS ---
EXAMINATION: CT brain wo con DATE: 09/16/2021 15:32 INDICATION: Confusion. Dementia. TECHNIQUE: Computed tomography (CT) of the head was performed without intravenous contrast. The mA wa s adjusted according to patient size. Iterative reconstruction technique was employed. Exam dose: 83 2.33 mGy-cm total exam DLP. COMPARISON: 05/28/2021 CT brain FINDINGS: Old left frontal cerebrovascular accident is again noted, stable since 05/28/2021. Chronic bilateral ba nita ganglia lacunar infarcts. Prominent bilateral carotid siphon internal carotid artery and vertebral artery and basilar artery ca lcifications. There is nonspecific diminished attenuation of the cerebral white matter, likely due to chronic small vessel ischemic changes. No intracranial mass lesion or hemorrhage or recent cerebrovascular accident is detected. CT is not s ensitive for detection of hyperacute nonhemorrhagic infarct. Moderate cerebral and cerebellar volume loss. No subdural or epidural hematoma is detected. No skull fracture is evident. Partial opacification of the left mastoid air cells. The right mastoid air cells are normally develop ed and aerated. The paranasal sinuses are unremarkable. IMPRESSION: Chronic left frontal and bilateral basal ganglia infarcts Cerebral atherosclerosis and chronic small vessel ischemic changes of the cerebral white matter No acute intracranial finding or skull fracture Reviewed, dictated and finalized at Location A. Reviewed, dictated and finalized at location B. IMPRESSION: Chronic left frontal and bilateral basal ganglia infarcts Cerebral atherosclerosis and chronic small vessel ischemic changes of the cereb ral white matter No acute intracranial finding or skull fracture
--- NOTE | ~2021-09-16 | US_ITS ---
US abdomen limited INDICATION: Hyperbilirubinemia PROCEDURE: Realtime right upper abdominal ultrasound. COMPARISON: No prior studies for comparison. FINDINGS: The pancreas is normal without focal mass or pancreatic ductal dilation. Liver echotexture is increased with nodular surface, consistent with cirrhosis. Small amount of ascites. There is nor mal directional flow in the portal vein. There are gallstones and gallbladder sludge. There is gallbladder wall thickening. Common bile duct measures 6 mm. No sonographic Almanzar's sign. Right pleural effusion. IMPRESSION: 1: Cholelithiasis with gallbladder sludge and thickened gallbladder wall. Findings suspicious for cho lecystitis. 2: Small amount of ascites. Small right pleural effusion. 3: Cirrhosis of the liver. Reviewed, dictated and finalized at location A. IMPRESSION: 1: Cholelithiasis with gallbladder sludge and thickened gallbladder wall. Findi ngs suspicious for cholecystitis. 2: Small amount of ascites. Small right pleural effusion. 3: Cirrhosis of the liver.
--- NOTE | ~2021-09-16 | XR_ITS ---
XR chest 1V portable 09/17/2021 08:19 Indication: Pulmonary edema. Pneumonia. Procedure: AP portable chest Comparison: Comparison to multiple prior studies sequentially, with oldest reviewed study dated 05/2015. Findings: Cardiomegaly. Status post median sternotomy for CABG. Diffuse bilateral airspace disease, m ost likely edema. Pneumonia less favored. Possible small effusions. No pneumothorax. Impression: 1: Diffuse bilateral airspace disease has progressed, most likely edema. Pneumonia less favored. Reviewed, dictated and finalized at location A. Impression: 1: Diffuse bilateral airspace disease has progressed, most likely edema. Pneumo ana less favored.
--- NOTE | 2021-09-16 14:16 | ECG_ITS ---
Measurements Intervals Carpenter Rate: 85 P: MT: 0 QRS: -63 QRSD: 102 T: 130 QT: 422 QTc: 505 Interpretive Statements ATRIAL FIBRILLATION LEFT AXIS DEVIATION LOW QRS VOLTAGE- DIFFUSE LEADS INCOMPLETE RIGHT BUNDLE BRANCH BLOCK BORDERLINE ST-T WAVE ABNORMALITY- HIGH LATERAL LEADS BASELINE ARTIFACT- I, II, III, V4 ABNORMAL ECG Electronically Signed On 09-16-2021 16:48:24 CDT by Jarrett Benitez D.O.
[2021-09-16 14:44] LABS: Basophils Percent Auto 0.7 % (0.2-1.2); Eosinophils Absolute Auto 0.1 K/mm3 (0-0.3); Eosinophils Percent Auto 1.3 % (0-4.4); Hematocrit 35.1 % (37.0-47.0); Immature Granulocyte Absolute 0.02 K/mm3 (0.00-0.031); Immature Granulocyte Percent A 0.3 % (0-0.5); Lymphocytes Absolute Auto 0.75 K/mm3 (0.9-3.2); Lymphocytes Percent Auto 12.4 % (18.3-44.2); Mean Corpuscular HGB Conc 31.3 g/dl (32-36); Mean Corpuscular Volume 98.9 fl (80-100); Mean Platelet Volume 10.6 fl (7.4-10.4); Monocytes Absolute Auto 1.2 K/mm3 (0.1-0.6); Monocytes Percent Auto 19.6 % (2.6-8.5); Neutrophils Percent Auto 65.7 % (45.5-73.1); Platelet Count Result 124 k/mm3 (150-375); Red Blood Count 3.55 M/mm3 (4.2-5.4); Red Cell Distribution Width 20.6 % (11.5-14.5); White Blood Count 6.1 K/mm3 (4.5-10.0)
[2021-09-16 14:44] LABS: Appearance Urine Cloudy (Clear); Bilirubin Urine 2+ (Negative); Blood Urine 3+ (Negative); Color Urine Yellow (Yellow); Glucose Urine UA Negative (Negative); Ketones Urine Trace mg/dL (Negative); Leukocyte Esterase Ur 2+ LEU/UL (Negative); Nitrate Urine Negative (Negative); Protein Urine 3+ mg/dL (Negative); pH Urine 5.5 (5.0-9.0)
[2021-09-16 14:52] LABS: Alanine Aminotransferase 22 U/L (6-35); Albumin Level 3.4 g/dL (3.5-5.1); Alkaline Phosphatase 89 U/L (38-126); Anion Gap 14 mmol/L (8-16); Aspartate Amino Transferase 39 U/L (14-36); Bilirubin,Total 3.3 mg/dL (0.2-1.3); Blood Urea Nitrogen 32 mg/dL (7-17); Calcium 8.8 mg/dL (8.4-10.2); Carbon Dioxide 20 mmol/L (22-30); Chloride 106 mmol/L (98-107); Estimated CRCL calculation 24 ml/min; Estimated Glomerular Filt Rate 22; Glucose 145 mg/dL (65-110); Potassium 4.6 mmol/L (3.4-5.0); Sodium 140 mmol/L (137-145)
[2021-09-16 14:52] LABS: Bacteria Urine 3+ /hpf; Budding Yeast Urine Present /hpf; Hyaline Casts Urine 50+ /lpf; Mucus Urine Few /lpf; RBC Urine 51-75 /hpf (0-2); Squamous Epithelial Cell Urine Few /hpf (Few); WBC Clumps Urine Present /HPF; WBC Urine >75 /hpf
[2021-09-16 14:53] LABS: INR 1.8; Prothrombin Time 20.6 Seconds (11.1-14.7)
[2021-09-16 14:53] LABS: Add Urine Microscopic? YES
[2021-09-16 14:54] LABS: Partial Thromboplastin Time 34.5 SECONDS (22.3-36.8)
--- NOTE | 2021-09-16 14:54 | ED.AMS ---
HPI - Altered Mental Status General Chief Complaint: Altered Mental Status Stated Complaint: unresponsive(painful stimuli only) but breathing Time Seen by Provider: 09/16/21 14:54 Source: family and EMS Mode of arrival: EMS History of Present Illness HPI narrative: 70 years old white female came by ambulance from [facility] with change of mental status for the last 2 days. Staff reports patient has refused to take any of her medications for the last past week. Patient continuously yelling no and unable to answer any questions. History of dementia, atrial fibrillation, congestive heart failure, hypertension, herpes, hepatitis and TIA, EMT reports patient was 85% on room air and placed on 2 L by nasal cannula, currently patient is 99% on 2 L. Patient's son at the bedside. Related Data Home Medications Medication Instructions Recorded Confirmed aspirin 81 mg tablet,delayed 81 mg PO DAILY 05/25/20 05/27/21 release donepezil 10 mg tablet 10 mg PO HS 05/25/20 05/27/21 escitalopram oxalate 20 mg tablet 20 mg PO DAILY 05/25/20 05/27/21 levothyroxine 88 mcg tablet 88 mcg PO DAILY 05/25/20 05/27/21 metformin 500 mg tablet,extended 1,000 mg PO BID 05/25/20 05/27/21 release 24 hr nadolol 40 mg tablet 40 mg PO QPM 05/25/20 05/27/21 sennosides 8.6 mg tablet (Senna 8.6 mg PO DAILY 05/25/20 05/27/21 Lax) acetaminophen 500 mg tablet 500 mg PO TID 05/27/21 05/27/21 alendronate 70 mg tablet 70 mg PO WEEKLY 05/27/21 05/27/21 calcium carbonate 600 mg-vitamin 2 tablet PO DAILY 05/27/21 05/27/21 D3 10 mcg (400 unit) tablet (Calcium with Vitamin D) cholecalciferol (vitamin D3) 25 2,000 unit PO DAILY 05/27/21 05/27/21 mcg (1,000 unit) tablet (Vitamin D3) multivitamin 1 tablet PO DAILY 05/27/21 05/27/21 nadolol 40 mg tablet 80 mg PO DAILY 05/27/21 05/27/21 nitroglycerin 400 mcg/spray 400 mcg sublingual Q5MIN PRN Angina 05/27/21 05/27/21 translingual (Nitrolingual) oxycodone 5 mg tablet 2.5 mg PO Q12H 05/27/21 05/27/21 pantoprazole 20 mg tablet,delayed 20 mg PO DAILY 05/27/21 05/27/21 release Allergies Allergy/AdvReac Type Severity Reaction Status Date / Time azithromycin Allergy Unknown Hives Verified 05/27/21 12:03 lisinopril Allergy Unknown Unknown Verified 05/27/21 12:03 niacin Allergy Unknown Diarrhea Verified 05/27/21 12:03 ranolazine [From Ranexa] Allergy Unknown Verified 05/27/21 12:05 rosuvastatin [From Crestor] Allergy Unknown Verified 05/27/21 12:04 simvastatin [From Zocor] Allergy Unknown Verified 05/27/21 12:06 [facility] Past Medical History Medical History Atrial fibrillation Congestive heart failure Dementia Depression with anxiety DM2 (diabetes mellitus, type 2) H/O gastroesophageal reflux (GERD) Hepatitis Herpes History of stroke Hyperlipidemia Hypertension Hypothyroidism Iron deficiency anemia Neuropathy Osteoporosis Retinopathy Surgical History Surgical History H/O bladder repair surgery H/O heart artery stent Multiple times H/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 She tells me that she is now for about 11 years. She has a son listed Edison and a daughter Bhavna. The patient was listed as a homemaker. Patient was a former smoker. No alcohol marijuana illicit drugs. Smoking packs per day: 1 Smokin
[2021-09-16 15:19] LABS: Alveolar/Arterial O2 Gradient 45.1 mmHg; Base Excess ABG -4.7 mEq/l (+/-2.0); Fractional Inspired Oxygen 21 %; HCO3 ABG 19.5 mEq/l (22.0-26.0); Oxygen Content ABG 15.1 %vol (16.0-22.0); Oxygen Saturation ABG 92.6 % (95.0-100.0); Oxyhemoglobin 88.8 % THb (90.0-100.0); PCO2 ABG 33.4 mmHg (35.0-45.0); PO2 ABG 64.6 mmHg (80.0-100.0); PO2 FiO2 Ratio Arterial Blood 3.08 %; Total Hemoglobin 12.1 g/dL (12.0-18.0); pH ABG 7.385 (7.350-7.450)
[2021-09-16 15:21] LABS: Device ROOM AIR; Modified Allen's Test Pass; Site Drawn RIGHT RADIAL
[2021-09-16] MEDS: SODIUM CHLORIDE 0.9% IV 1,000 ML 999 ML IV CONT (16:13)
[2021-09-16 16:20] LABS: Ammonia 32 umol/L (9-30)
[2021-09-16 16:26] LABS: CRP 3.3 mg/dL (<1.0)
[2021-09-16 16:32] LABS: NT Pro B Type Natriuretic Pept 28700 pg/mL (5-100)
[2021-09-16 16:47] LABS: Lactic Acid Reflex 4.7 mmol/L (0.7-2.0)
[2021-09-16 16:50] LABS: SARS-CoV-2 RNA PCR Negative
[2021-09-16 17:10] LABS: Troponin I 0.406 ng/mL (0.000-0.034)
--- NOTE | 2021-09-16 17:14 | PC.NURSE ---
EDP at bedside for Central Line Placement.
--- NOTE | 2021-09-16 17:46 | PM.IMHP ---
H&P: HPI History of Present Illness Date/Time: 09/16/21 17:30 Chief Complaint: Altered mental status Narrative: this 70-year-old female patient with significant past medical history of atrial fibrillation, congestive heart failure, dementia, depression with anxiety, diabetes mellitus type 2, GERD, hepatitis, herpes, history of stroke, hyperlipidemia, hypertension, hypothyroidism, iron deficiency anemia, neuropathy, osteoporosis and retinopathy is brought to the emergency room via EMS from [facility] where she resides with complaints of altered mental status. On arrival patient is basically unresponsive except to painful tactile stimuli. It was noted at [facility] that over the past couple of days her mental status has declined and she has resulted only yelling, not answering any questions and not making any attempt to converse meaningfully. It is said by the staff at [facility] that for the past week she has refused all medications. Patient is yelling upon my entry into the room, ER physician is present placing central line. Initial emergency room workup has resulted and is significant for a drop in her blood pressure to 70s over 40s, CO2 of 20 with creatinine and BUN of 2.2 /32, INR of 1.8 PT of 20.6, urine demonstrating 3+ protein, 3+ blood, 2+ bilirubin, 2+ leukocyte esterase with greater than 75 wbc's and only few squamous epithelials, 3+ bacteria noted in the urine ABG with a pH of 7.385, pCO2 of 33.4, PO2 of 64.6 on room air and a bicarb of 19.5 with a base excess of -4.7, lactic acid of 4.7, total bilirubin of 3.3, AST of 39, ALT of 22, ammonia of 32, troponin of 0.406, CRP [place] 3.3[place] [address], negative COVID test, chest x-ray demonstrating diffuse lung disease with mild worsening of the right lung base consistent with pulmonary edema versus pneumonia and cardiomegaly, and head CT demonstrating a chronic left frontal and bilateral basal ganglia infarct with cerebral atherosclerosis and chronic small-vessel ischemic changes of the cerebral white matter with no other acute intracranial finding or skull fracture EKG is showing atrial fibrillation with a rate of 85 with a left axis deviation, incomplete right bundle-branch block with borderline ST wave abnormality in the lateral leads. Review of this patient's chart does not show any previous cardiac function testing to review. Patient is being admitted to ICU at this time with a diagnosis of septic shock with multiple organ dysfunction, urinary tract infection With BENNY, pneumonia versus pleural effusion indicating heart failure. Central line is placed in the ER by ER physician. She was initial dosed on Rocephin, Levaquin, Zosyn and Vancomycin and will continue on them. Cultures are pending, Product Tester has been consulted. I had an in-depth discussion with the patient's son, Edison, who is her power of ip technology transactions attorney to address code status at this time. Patient's son indicates that patient's wishes are to remain a full code and give a chance to possibly recover, and when asked specifically if we continued with treatment up to the point of her heart stopping would CPR be wanted and he stated at this time he needed to think about it. Therefore this time patient remains a full code. Review of Systems Review of Systems: ROS unobtainable: Yes unobtainable due to medical condition and unobtainable due to mental status PMFSH Past Medical History Medical History Atrial fibrillation Congestive heart failure Dementia Depression with anxiety DM2 (diabetes mellitus, type 2) H/O gastroesophageal reflux (GERD) Hepatitis Herpes History of stroke Hyperlipidemia Hypertension Hypothyroidism Iron deficiency anemia Neuropathy Osteoporosis Retinopathy Surgical History Surgical History H/O bladder repair surgery H/O heart artery stent Multiple times H/O two ves
[2021-09-16] MEDS: NOREPINEPHRINE 8 MG/D5W 250 ML 8 MG/250 ML BAG 9.38 MG IV CONT (17:54)
[2021-09-16 18:39] LABS: Lactic Acid Reflex 4.5 mmol/L (0.7-2.0)
--- NOTE | 2021-09-16 18:51 | ADMGEN ---
This patient, Teena Tinoco, was admitted to Intensive Care Unit-7 at 1851. Patient/family oriented to hospital policies and general routines including ID bracelet, bed and alarms, visiting hours, pain management, procedures, bathroom and other care routines, personal items, smoking policy, room service/diet, and visiting hours. Information on how to activate the Rapid Response Team has been discussed. Patient/Family are encouraged to report perceived risks to care and to ask questions if they do not understand what they are told or what they should do.
[2021-09-16 19:05] LABS: Reflex Lactic Acid Yes or No Add Lactic
[2021-09-16 19:10] LABS: Troponin I 0.382 ng/mL (0.000-0.034)
[2021-09-16 19:21] LABS: Hepatitis B Surface Antigen Negative (Negative)
[2021-09-16 19:27] LABS: HAV RESULT Negative (Negative); Hepatitis B Core IgM Result Negative (Negative)
[2021-09-16 19:38] LABS: Hepatitis C Virus Antibody Negative (Negative)
--- NOTE | 2021-09-16 19:47 | ADMGEN ---
This patient, Teena Tinoco, was admitted to Intensive Care Unit-7. Patient/family oriented to hospital policies and general routines including ID bracelet, bed and alarms, visiting hours, pain management, procedures, bathroom and other care routines, personal items, smoking policy, room service/diet, and visiting hours. Information on how to activate the Rapid Response Team has been discussed. Patient/Family are encouraged to report perceived risks to care and to ask questions if they do not understand what they are told or what they should do.
[2021-09-16 21:28] LABS: Lactic Acid 3.9 mmol/L (0.7-2.0)
[2021-09-16] MEDS: LACTULOSE ENEMA 200 GM/1,000 ML ENEMA RECTAL (21:34)
[2021-09-16 21:45] LABS: Troponin I 0.372 ng/mL (0.000-0.034)
[2021-09-17] VITALS (33 sets, daily range): BP systolic 46–98; BP diastolic 23–73; PULSE 62–80; RESP 12–18; TEMP 35.7–36.2; O2SAT 91–98
--- NOTE | 2021-09-17 | ECHO_ITS ---
Patient Info Name: Teena Tinoco Age: 70 years : 1950 Gender: Female Ht: 62 in Wt: 223 lbs BSA: 2.16 m2 HR: 64 bpm BP: 95 / 63 mmHg Heart Rhythm: Atrial Fibrillation Technical Quality: Poor Exam Date: 09/17/2021 7:05 AM Exam Location: [facility] Patient Status: Inpatient Admit Date: 09/16/2021 Staff Ordering Physician: Mena John Team Member: Khadra Mejia RDCS Attending Provider: Carmen Singh DO Referring Physician: Dora SMITH; Exam Type: CA echo dop color flow w con Study Info Indications I11.0 - Hypertensive heart disease with heart failure Complete two-dimensional, color flow and Doppler transthoracic echocardiogram is performed with contrast to opacify the left ventricle and to improve the deliniation of the left ventricle endocardial borders. Contrast/Agitated Saline Contrast/Ag. Saline: Definity Amount: 4.00 ml Administered By: Khadra Mejia [facility] Summary 1. Technically difficult study with limited views. Definity contrast enhancement administered. 2. Right ventricular systolic function is [id number] reduced. 3. There is moderate aortic valve stenosis with a peak velocity of 252.61 cm/s, mean gradient of 15 mmHg, and aortic valve area of 1.10 cm2. 4. Left ventricular chamber dimension is normal. 5. Left ventricular systolic function is normal, estimated at 60-65%. 6. There is mildly increased left ventricular wall thickness. 7. Right ventricular chamber dimension is severely enlarged. 8. Right atrial chamber dimension is moderately enlarged. 9. There is mild to moderate mitral valve regurgitation. 10. There is severe tricuspid valve regurgitation. 11. Moderate pulmonary hypertension, estimated pulmonary arterial systolic pressure is 50 mmHg. Left Ventricle Technically difficult study with limited views. Definity contrast enhancement administered. Left ventricular chamber dimension is normal. Left ventricular systolic function is normal, estimated at 60-65%. There is mildly increased left ventricular wall thickness. The left ventricular diastolic function is indeterminate. Right Ventricle Right ventricular systolic function is [id number] reduced. Right ventricular chamber dimension is severely enlarged. Left Atria Left atrial chamber dimension is normal. Right Atria Right atrial chamber dimension is moderately enlarged. Aortic Valve There is moderate aortic valve stenosis with a peak velocity of 252.61 cm/s, mean gradient of 15 mmHg, and aortic valve area of 1.10 cm2. The aortic valve is probable trileaflet. There is no aortic valve regurgitation. There is mild aortic valve calcification. Pulmonic Valve The pulmonic valve is normal. There is mild pulmonic regurgitation. Mitral Valve The mitral valve has thickened leaflets. There is mild to moderate mitral valve regurgitation. The mitral valve annulus is moderately calcified. Tricuspid Valve The tricuspid valve leaflets are normal. There is severe tricuspid valve regurgitation. Moderate pulmonary hypertension, estimated pulmonary arterial systolic pressure is 50 mmHg. Pericardium/Pleural The pericardium appears normal. There is no pericardial effusion. Aorta The aortic root size at the sinus of Valsalva is normal. There is mild aortic atherosclerosis. Left Ventricular Outflow Tract Name
[2021-09-17 05:33] LABS: Alveolar/Arterial O2 Gradient 57.4 mmHg; Base Excess ABG -5.5 mEq/l (+/-2.0); Fractional Inspired Oxygen 28 %; HCO3 ABG 18.8 mEq/l (22.0-26.0); Oxygen Content ABG 17.2 %vol (16.0-22.0); Oxygen Saturation ABG 97.7 % (95.0-100.0); Oxyhemoglobin 96.2 % THb (90.0-100.0); PCO2 ABG 32.8 mmHg (35.0-45.0); PO2 ABG 103.5 mmHg (80.0-100.0); Total Hemoglobin 12.6 g/dL (12.0-18.0); pH ABG 7.376 (7.350-7.450)
[2021-09-17 05:34] LABS: Site Drawn LEFT RADIAL
[2021-09-17 05:35] LABS: Device NASAL CANNULA; Modified Allen's Test Pass
[2021-09-17] MEDS: NOREPINEPHRINE 8 MG/D5W 250 ML 8 MG/250 ML BAG 33.75 MG IV CONT (06:13)
[2021-09-17 06:57] LABS: Basophils Percent Auto 0.7 % (0.2-1.2); Eosinophils Percent Auto 0.7 % (0-4.4); Hemoglobin 11.6 g/dL (12.0-15.0); Immature Granulocyte Absolute 0.03 K/mm3 (0.00-0.031); Immature Granulocyte Percent A 0.5 % (0-0.5); Lymphocytes Absolute Auto 0.53 K/mm3 (0.9-3.2); Lymphocytes Percent Auto 9.4 % (18.3-44.2); Mean Corpuscular HGB Conc 32.2 g/dl (32-36); Mean Corpuscular Hemoglobin 31.4 pg (26-34); Mean Corpuscular Volume 97.3 fl (80-100); Mean Platelet Volume 10.3 fl (7.4-10.4); Monocytes Absolute Auto 0.9 K/mm3 (0.1-0.6); Monocytes Percent Auto 16.7 % (2.6-8.5); Platelet Count Result 125 k/mm3 (150-375); Red Cell Distribution Width 20.2 % (11.5-14.5); White Blood Count 5.6 K/mm3 (4.5-10.0)
[2021-09-17 07:01] LABS: Alanine Aminotransferase 20 U/L (6-35); Albumin Level 3.1 g/dL (3.5-5.1); Alkaline Phosphatase 85 U/L (38-126); Anion Gap 14 mmol/L (8-16); Aspartate Amino Transferase 37 U/L (14-36); Bilirubin,Total 2.8 mg/dL (0.2-1.3); Blood Urea Nitrogen 33 mg/dL (7-17); Calcium 8.8 mg/dL (8.4-10.2); Carbon Dioxide 18 mmol/L (22-30); Chloride 103 mmol/L (98-107); Estimated CRCL calculation 20 ml/min; Estimated Glomerular Filt Rate 17; Glucose 225 mg/dL (65-110); Lactate Dehydrogenase 627 U/L (313-618); Lactic Acid Reflex 3.8 mmol/L (0.7-2.0); Lipase 431 U/L (23-300); Magnesium 1.9 mg/dL (1.6-2.3); Potassium 4.5 mmol/L (3.4-5.0); Sodium 135 mmol/L (137-145)
[2021-09-17 07:02] LABS: Prothrombin Time 21.9 Seconds (11.1-14.7)
[2021-09-17 07:04] LABS: Ammonia 79 umol/L (9-30)
[2021-09-17] MEDS: hetaSTARCH 6%/NACL 500 ML 250 ML IV CONT (08:18)
[2021-09-17] MEDS: NOREPINEPHRINE 8 MG/D5W 250 ML 8 MG/250 ML BAG 48.75 MG IV CONT (08:29)
[2021-09-17] MEDS: PERFLUTREN LIPID MICROSPHERES 1.5 ML VIAL DILUTED TO 10 ML TOTAL VOLUME IV PUSH (09:00)
--- NOTE | 2021-09-17 09:00 | PC.NURSE ---
update given to patient's son and POAEdison. He and his have agreed to to make the patient comfort measures. Dr. Paully notified.
[2021-09-17] MEDS: HEPARIN SODIUM 5,000 UNITS/ML VIAL 5000 UNITS SUB-Q (09:01)
[2021-09-17] MEDS: PANTOPRAZOLE SODIUM IV 40 MG VIAL IV PUSH (09:01)
[2021-09-17 09:48] LABS: Reflex Lactic Acid Yes or No Add Lactic
[2021-09-17] MEDS: MORPHINE SULFATE INJ (*CRX) 10 MG/ML AMP 5 MG IV PUSH (10:44)
[2021-09-17] MEDS: LORazepam INJ (*CRX) 2 MG/ML VIAL IV PUSH (10:50)
[2021-09-17] MEDS: LACTATED RINGERS 500 ML (10:55)
--- NOTE | 2021-09-17 11:45 | WPDCNINT ---
Assessment and Plan Assessment and plan (1) Septic shock: Code(s): A41.9 - Sepsis, unspecified organism; R65.21 - Severe sepsis with septic shock Status: Acute Assessment and Plan: Patient presented with altered mental status, acute kidney injury, UA reflective of UTI, hypotensive -likely related to septic shock -patient received 1 L of IV fluid bolus in the ER as she was very edematous and her proBNP was 80264 -patient was started on Levophed after central line was placed in a right femoral vein -will maintain MAP > 70 mmHg for adequate end organ perfusion -patient was started on Levaquin, ceftriaxone, Zosyn and vancomycin in the ER -will discontinue Levaquin and Zosyn - patient had E coli UTI 05/27/2021 which was susceptible to ceftriaxone -therefore will continue ceftriaxone and vancomycin at this time -09/16/2021: Blood and urine cultures have been obtained (2) Urinary tract infection: Code(s): N39.0 - Urinary tract infection, site not specified Status: Acute Assessment and Plan: Urine cultures and blood cultures have been obtained and pending - patient had E coli UTI 05/27/2021 which was susceptible to ceftriaxone -continue antibiotics as above (3) Elevated troponin: Code(s): R77.8 - Other specified abnormalities of plasma proteins Status: Acute Assessment and Plan: Likely related to type 2 infarct secondary to septic shock, dehydration Echocardiogram showed RV systolic function to be mild to moderately reduced, EF of 60-65%, right ventricular chamber dimension is severely enlarged, right atrial chamber is moderately enlarged mild to moderate mitral valve regurg, severe tricuspid valve regurg, moderate pulmonary hypertension with RVSP of 50 mmHg. (4) Hyperbilirubinemia: Code(s): E80.6 - Other disorders of bilirubin metabolism Status: Acute Assessment and Plan: Patient has a history of non alcoholic cirrhosis, -elevated bilirubin and LFTs likely due to cirrhosis and not exacerbated by septic shock and decreased perfusion (5) Pneumonia: Code(s): J18.9 - Pneumonia, unspecified organism Status: Acute Assessment and Plan: Bilateral diffuse infiltrates on chest x-ray could be related to pulmonary edema and/or pneumonia -continue antibiotics as above (6) Acute metabolic encephalopathy: Code(s): G93.41 - Metabolic encephalopathy Status: Acute Assessment and Plan: Acute metabolic encephalopathy likely related to septic shock, acute kidney injury with possible uremia, -hepatic encephalopathy as her ammonia levels were elevated and patient is on lactulose -continue to treat underlying cause Additional Plan Discussed with son Edison at bedside who is the POA and updated with patient's condition and plan of care. He requested that patient be made DNR and comfort measures only. Code status: DNR/comfort measures Critical care time spent: 49 minutes This dictation may have been done utilizing a voice recognition system. Attempts have been made to correct errors. However, there may be uncorrected grammatical, spelling, and recognition errors present. Due to a high probability of clinically significant, life threatening deterioration, the patient required my highest level of preparedness to intervene emergently and I personally spent this critical care time directly and personally managing the patient. This critical care time included obtaining a history; examining the patient; pulse oximetry; ordering and review of studies; arranging urgent treatment with development of a management plan; evaluation of patient's response to treatment; frequent reassessment; and discussions with other providers. It was exclusive of separately billable procedures and treating other patients and teaching time. Please see Assessment and Plan section and the rest of the note for further information on patient assessment and treatment [employer] Consult Not
--- NOTE | 2021-09-17 12:48 | PM.DDS ---
Discharge Summary Date and Time Date of : 09/17/21 Time of : 12:20 Probable Cause of Probable Cause of : septic shock Summary Hospital Course: patient presented with septic shock secondary to urosepsis patient family decided to place the patient comfort care and patient on 09/17/2021 at 12:20
--- NOTE | 2021-09-17 13:36 | PC.NURSE ---
Cessation of heart beat at 1220. Monitor shows PEA. verified by Geni Servin RN and Chelita Dennis RN. Family present at time of patient demise.
--- NOTE | 2021-09-17 13:44 | PC.NURSE ---
Family request [facility] in [place].
[2021-09-21 15:36] LABS: Pneumococcal Antigen Urine Not Detected (Not Detected)
== END 2021-09-17 12:20 | disposition expired | DRG 871 ==
LOC: ANHED 15:17 → ANHICU 18:15
PROVIDERS: Internal Medicine; Nurse Practitioner Adult Health; Admitting Provider Student in an Organized Health Care Education/Training Program; Emergency Provider Emergency Medicine; PCP Family Medicine; Visit Provider Family Medicine
DX: A41.9 Sepsis, unspecified organism (principal); R65.21 Severe sepsis with septic shock; G93.41 Metabolic encephalopathy; J18.9 Pneumonia, unspecified organism; N39.0 Urinary tract infection, site not specified; N17.9 Acute kidney failure, unspecified; I11.0 Hypertensive heart disease with heart failure; I50.9 Heart failure, unspecified; Z66 Do not resuscitate; Z51.5 Encounter for palliative care; Z20.822 Contact with and (suspected) exposure to COVID-19; R77.8 Other specified abnormalities of plasma proteins; E80.6 Other disorders of bilirubin metabolism; E86.0 Dehydration; F03.90 Unspecified dementia, unspecified severity, without behavioral disturbance, psychotic disturbance, mood disturbance, and anxiety; F41.8 Other specified anxiety disorders; K21.9 Gastro-esophageal reflux disease without esophagitis; E03.9 Hypothyroidism, unspecified; M81.0 Age-related osteoporosis without current pathological fracture; D50.9 Iron deficiency anemia, unspecified; E78.5 Hyperlipidemia, unspecified; E11.319 Type 2 diabetes mellitus with unspecified diabetic retinopathy without macular edema; E11.40 Type 2 diabetes mellitus with diabetic neuropathy, unspecified; I48.91 Unspecified atrial fibrillation; K74.60 Unspecified cirrhosis of liver; K75.9 Inflammatory liver disease, unspecified; B00.9 Herpesviral infection, unspecified; Z79.82 Long term (current) use of aspirin; Z79.899 Other long term (current) drug therapy; Z86.73 Personal history of transient ischemic attack (TIA), and cerebral infarction without residual deficits; Z87.891 Personal history of nicotine dependence
CPT/HCPCS: 36415; 36556; 36600; 51701; 70450; 71045; 76705; 80053; 80074; 81001; 82140; 82805; 83605; 83615; 83690; 83735; 83880; 84484; 85025; 85610; 85730; 86140; 87040; 87077; 87086; 87088; 87186; 87899; 93005; 99291; C1751; C8929; C9113; C9803; J0131; J0696; J1644; J1956; J2060; J2270; J2543; J3370; J7030; J7120; Q9957; U0003; U0005